=== PATIENT | female | born 1935 | race Caucasian/White ===

== ENCOUNTER 2017-11-22 20:43 | Inpatient (IN) | payer OTHER ==
[~2017-11-22] VITALS: Ht 160 cm; Wt 133.1 kg
[~2017-11-22 20:43] MED LIST: ASPI81CH PO; ASPI81EC PO; BENTYL20 MG PO; BIOTIN1 MG PO; BUME2 PO; CIPR500 PO; Cipro500 MG PO; DOCU100 PO; FLUT.05NI; Flagyl500 MG PO; Flonase 0.05% N16 GM; GABA300 PO; GAVILAX17 GM PO; GLUC500 PO; HYDACE5 PO; HYDACE5325 PO; Hydrocodone-Ap1 EA26 PO; LIDO5TP TOP; LOPE2C PO; LOSA25; LOSA50; MECL25; MECL25 PO; MULVITMINF PO; Mirapex PO; OLME20 PO; OMEP40CA12 PO; ONDA4 PO; OXYACE5T PO; POLYETHYLENE G255 GM PO; PREG50 PO; PROC10 PO; PROM25 PO; ROPI.25 PO; ROXICODONE5 MG PO; Roxicodone5 MG PO; SIMV20; SIMV40 PO; SIMV5 PO; SULTRIDS PO; VALS80 PO; Zofran4 MG PO
[2017-11-22 21:07] LABS: BASOPHILS ABSOLUTE AUTO 0.02 K/mm3 (0.00-0.23); BASOPHILS PERCENT AUTO 0 % (0-2); EOSINOPHILS ABSOLUTE AUTO 0.02 K/mm3 (0.00-0.68); EOSINOPHILS PERCENT AUTO 0 % (0-6); Hematocrit 29.7 % (33.0-51.0); Hemoglobin 9.4 g/dL (11.5-16.0); IMMATURE GRAN ABSOLUTE AUTO 0.08 K/mm3 (0.00-0.10); IMMATURE GRAN PERCENT AUTO 1 % (0-1); LYMPHOCYTES ABSOLUTE AUTO 0.64 K/mm3 (0.84-5.20); LYMPHOCYTES PERCENT AUTO 8 % (21-46); MONOCYTES ABSOLUTE AUTO 1.65 K/mm3 (0.16-1.47); MONOCYTES PERCENT AUTO 21 % (4-13); Mean Corpuscular HGB 32.9 pg (26.0-34.0); Mean Corpuscular HGB Conc 31.6 g/dL (31.5-36.5); Mean Corpuscular Volume 104 fL (80-100); Mean Platelet Volume 9.8 fL (9.1-12.4); NEUTROPHILS ABSOLUTE AUTO 5.65 K/mm3 (1.96-9.15); NEUTROPHILS PERCENT AUTO 70 % (41-73); NRBC ABSOLUTE 0.03 K/mm3 (0.00-0.02); NRBC Auto 0.4 /100 WBC (0.0-0.2); Platelet Count 161 K/mm3 (150-400); RDW Coefficient Variation 15.3 % (11.7-14.2); RDW Standard Deviation 56.7 fL (35.1-46.3); Red Blood Cell Count 2.86 M/mm3 (3.80-5.20); White Blood Cell Count 8.06 K/mm3 (4.00-11.30)
[2017-11-22 21:25] LABS: Alanine Aminotransfer (ALT/SGP 21 U/L (12-78); Albumin, Blood 3.5 g/dL (3.4-5.0); Albumin/Globulin Ratio 0.8 (0.8-1.8); Alk Phos 66 U/L (50-136); Anion Gap 9 mmol/L (6-16); Aspartate Aminotrans (AST/SGOT 15 U/L (12-37); Bilirubin, Total 0.6 mg/dL (0.1-1.0); Blood Urea Nitrogen 35 mg/dL (8-24); CO2, Blood 23 mmol/L (21-32); Calcium, Blood 8.5 mg/dL (8.5-10.1); Chloride, Blood 110 mmol/L (98-108); Creatinine, Blood 1.84 mg/dL (0.40-1.00); Globulin, Blood 4.5 g/dL (2.2-4.0); Glomerular Filtration Rate 28 (60-); Glucose, Blood 137 mg/dL (70-99); Potassium, Blood 5.3 mmol/L (3.5-5.5); Sodium, Blood 142 mmol/L (136-145)
[2017-11-22 22:21] LABS: Source, Urine Clean Catch
[2017-11-22 22:25] LABS: Appearance, Urine Hazy (Clear); Bilirubin, Urine Neg (Neg); Blood, Urine 5+ (Neg); Color, Urine Yellow (P-Yellow); Glucose Qualitative, Urine Neg (Neg); Ketones, Urine Neg (Neg); Leukocyte Esterase, Urine 3+ (Neg); Nitrite, Urine Neg (Neg); Protein, Urine 3+ (Neg); Urobilinogen, Urine NORM (Normal)
[2017-11-22 22:30] LABS: Squamous Epithelial Cells Rare /hpf (Few); White Blood Cells, Urine 50-100 /hpf (0-5)
[2017-11-22 22:31] LABS: Amorphous Light (0-Heavy); Bacteria Mod /hpf
[2017-11-22] MEDS ORDERED: PREG200 PO (23:41)
[2017-11-22 23:54] LABS: Troponin I <0.015 ng/mL (0.000-0.040)
[2017-11-23 00:05] LABS: Base Excess Venous -2.6 mmol/L; Bicarbonate Venous 22.5 mmol/L (24.0-30.0); PCO2 Venous 38.1 mmHg (38-42); PO2 Venous 185 mmHg (38-42); pH Blood Venous 7.38 (7.34-7.37)
[2017-11-23 04:51] LABS: Hematocrit 29.2 % (33.0-51.0); Hemoglobin 9.1 g/dL (11.5-16.0); Mean Corpuscular HGB 32.9 pg (26.0-34.0); Mean Corpuscular HGB Conc 31.2 g/dL (31.5-36.5); Mean Corpuscular Volume 105 fL (80-100); Mean Platelet Volume 9.6 fL (9.1-12.4); NRBC ABSOLUTE 0.02 K/mm3 (0.00-0.02); NRBC Auto 0.3 /100 WBC (0.0-0.2); Platelet Count 140 K/mm3 (150-400); RDW Coefficient Variation 15.1 % (11.7-14.2); RDW Standard Deviation 57.9 fL (35.1-46.3); Red Blood Cell Count 2.77 M/mm3 (3.80-5.20)
[2017-11-23 05:15] LABS: Albumin, Blood 3.2 g/dL (3.4-5.0); Albumin/Globulin Ratio 0.8 (0.8-1.8); Bilirubin, Total 0.5 mg/dL (0.1-1.0); Bun/Creatinine Ratio 18.2 (12.0-20.0); Calcium, Blood 8.2 mg/dL (8.5-10.1); Creatinine, Blood 1.92 mg/dL (0.40-1.00); Globulin, Blood 4.2 g/dL (2.2-4.0); Potassium, Blood 5.2 mmol/L (3.5-5.5); Total Protein, Blood 7.4 g/dL (6.4-8.2)
[2017-11-23] MEDS ORDERED: BUME1 PO (14:27)
[2017-11-23] MEDS ORDERED: ELIQUIS2.5 MG PO (14:28)
[2017-11-23] MEDS ORDERED: MYRBETRIQ25 MG PO (14:29)
[2017-11-23] MEDS ORDERED: Prilosec Otc20 MG PO (14:29)
[2017-11-23] MEDS ORDERED: ALBU90OI INH (14:30)
[2017-11-23] MEDS ORDERED: B Complex #11 EACH PO (14:30)
[2017-11-23] MEDS ORDERED: CHOL10002 PO (14:31)
[2017-11-23] MEDS ORDERED: VITAMIN E400 UNI1 PO (14:31)
== END 2017-11-23 16:59 | disposition home or self-care (01) | DRG 690 ==
LOC: ER 20:43 → MEDS 20:44 → ENPENDDIS 11-23 16:58 → MEDS 11-23 16:59
PROVIDERS: Emergency Medicine; Internal Medicine
DX: N39.0 Urinary tract infection, site not specified (principal); J96.11 Chronic respiratory failure with hypoxia; Z68.43 Body mass index [BMI] 50.0-59.9, adult; E78.00 Pure hypercholesterolemia, unspecified; L40.9 Psoriasis, unspecified; F44.4 Conversion disorder with motor symptom or deficit; J44.9 Chronic obstructive pulmonary disease, unspecified; Z99.81 Dependence on supplemental oxygen; Z74.09 Other reduced mobility; I12.9 Hypertensive chronic kidney disease with stage 1 through stage 4 chronic kidney disease, or unspecified chronic kidney disease; K21.9 Gastro-esophageal reflux disease without esophagitis; L40.50 Arthropathic psoriasis, unspecified; G47.30 Sleep apnea, unspecified; N18.3 Chronic kidney disease, stage 3 (moderate); Z66 Do not resuscitate; E86.0 Dehydration; D63.1 Anemia in chronic kidney disease; Z87.442 Personal history of urinary calculi; E66.01 Morbid (severe) obesity due to excess calories
CPT/HCPCS: 36415; 51702; 71045; 80053; 81001; 82803; 83690; 83880; 84484; 85025; 85027; 87077; 87086; 87186; 93005; 93010; 96374; 96375; 97161; 97165; 97530; 99285; G8978; G8979; G8980; G8987; G8988; J0696; J1650; J2405; J3010; J7030

== ENCOUNTER 2018-01-16 12:55 | Inpatient (IN) | payer OTHER ==
[~2018-01-16] VITALS: Ht 152.4 cm; Wt 130.4 kg
[~2018-01-16 12:55] MED LIST changes: +ALBU90OI INH; +B Complex #11 EACH PO; +BUME1 PO; +CHOL10002 PO; +ELIQUIS2.5 MG PO; +MYRBETRIQ25 MG PO; +PREG200 PO; +Prilosec Otc20 MG PO; +VITAMIN E400 UNI1 PO
[2018-01-16 13:38] LABS: Source, Urine Clean Catch
[2018-01-16 13:46] LABS: BASOPHILS ABSOLUTE AUTO 0.02 K/mm3 (0.00-0.23); BASOPHILS PERCENT AUTO 0 % (0-2); EOSINOPHILS ABSOLUTE AUTO 0.01 K/mm3 (0.00-0.68); EOSINOPHILS PERCENT AUTO 0 % (0-6); Hematocrit 31.6 % (33.0-51.0); Hemoglobin 9.8 g/dL (11.5-16.0); IMMATURE GRAN ABSOLUTE AUTO 0.23 K/mm3 (0.00-0.10); IMMATURE GRAN PERCENT AUTO 2 % (0-1); LYMPHOCYTES ABSOLUTE AUTO 0.76 K/mm3 (0.84-5.20); LYMPHOCYTES PERCENT AUTO 6 % (21-46); MONOCYTES ABSOLUTE AUTO 1.99 K/mm3 (0.16-1.47); MONOCYTES PERCENT AUTO 16 % (4-13); Mean Corpuscular HGB 31.7 pg (26.0-34.0); Mean Corpuscular Volume 102 fL (80-100); Mean Platelet Volume 9.9 fL (9.1-12.4); NEUTROPHILS PERCENT AUTO 77 % (41-73); Platelet Count 175 K/mm3 (150-400); RDW Standard Deviation 52.2 fL (35.1-46.3); Red Blood Cell Count 3.09 M/mm3 (3.80-5.20); White Blood Cell Count 12.81 K/mm3 (4.00-11.30)
[2018-01-16 13:52] LABS: Appearance, Urine Cloudy (Clear); Bilirubin, Urine Neg (Neg); Blood, Urine 5+ (Neg); Color, Urine Yellow (P-Yellow); Glucose Qualitative, Urine Neg (Neg); Ketones, Urine Neg (Neg); Leukocyte Esterase, Urine 3+ (Neg); Nitrite, Urine Neg (Neg); Protein, Urine 3+ (Neg); Specific Gravity, Urine 1.015 (1.003-1.022); Urobilinogen, Urine NORM (Normal)
[2018-01-16 14:01] LABS: Albumin, Blood 3.5 g/dL (3.4-5.0); Albumin/Globulin Ratio 0.7 (0.8-1.8); Bilirubin, Total 0.4 mg/dL (0.1-1.0); Bun/Creatinine Ratio 19.9 (12.0-20.0); Creatinine, Blood 2.21 mg/dL (0.40-1.00); Globulin, Blood 5.1 g/dL (2.2-4.0); Potassium, Blood 5.8 mmol/L (3.5-5.5); Total Protein, Blood 8.6 g/dL (6.4-8.2)
[2018-01-16 14:18] LABS: Bacteria Few /hpf; Squamous Epithelial Cells Rare /hpf (Few); White Blood Cells, Urine TNTC /hpf (0-5)
[2018-01-17 04:46] LABS: BASOPHILS ABSOLUTE AUTO 0.02 K/mm3 (0.00-0.23); BASOPHILS PERCENT AUTO 0 % (0-2); EOSINOPHILS ABSOLUTE AUTO 0.03 K/mm3 (0.00-0.68); EOSINOPHILS PERCENT AUTO 0 % (0-6); Hematocrit 29.9 % (33.0-51.0); Hemoglobin 9.4 g/dL (11.5-16.0); IMMATURE GRAN ABSOLUTE AUTO 0.11 K/mm3 (0.00-0.10); IMMATURE GRAN PERCENT AUTO 1 % (0-1); LYMPHOCYTES ABSOLUTE AUTO 0.72 K/mm3 (0.84-5.20); LYMPHOCYTES PERCENT AUTO 7 % (21-46); MONOCYTES ABSOLUTE AUTO 1.53 K/mm3 (0.16-1.47); MONOCYTES PERCENT AUTO 14 % (4-13); Mean Corpuscular HGB 32.5 pg (26.0-34.0); Mean Corpuscular HGB Conc 31.4 g/dL (31.5-36.5); Mean Corpuscular Volume 104 fL (80-100); Mean Platelet Volume 9.8 fL (9.1-12.4); NEUTROPHILS ABSOLUTE AUTO 8.68 K/mm3 (1.96-9.15); NEUTROPHILS PERCENT AUTO 78 % (41-73); Platelet Count 143 K/mm3 (150-400); RDW Coefficient Variation 13.8 % (11.7-14.2); RDW Standard Deviation 52.7 fL (35.1-46.3); Red Blood Cell Count 2.89 M/mm3 (3.80-5.20); White Blood Cell Count 11.09 K/mm3 (4.00-11.30)
[2018-01-17 05:06] LABS: Bun/Creatinine Ratio 19.6 (12.0-20.0); Calcium, Blood 8.4 mg/dL (8.5-10.1); Creatinine, Blood 1.99 mg/dL (0.40-1.00); Potassium, Blood 5.4 mmol/L (3.5-5.5)
[2018-01-18 05:16] LABS: BASOPHILS ABSOLUTE AUTO 0.01 K/mm3 (0.00-0.23); BASOPHILS PERCENT AUTO 0 % (0-2); EOSINOPHILS ABSOLUTE AUTO 0.13 K/mm3 (0.00-0.68); EOSINOPHILS PERCENT AUTO 2 % (0-6); Hematocrit 28.8 % (33.0-51.0); Hemoglobin 9.1 g/dL (11.5-16.0); IMMATURE GRAN ABSOLUTE AUTO 0.12 K/mm3 (0.00-0.10); IMMATURE GRAN PERCENT AUTO 2 % (0-1); LYMPHOCYTES ABSOLUTE AUTO 0.74 K/mm3 (0.84-5.20); LYMPHOCYTES PERCENT AUTO 10 % (21-46); MONOCYTES PERCENT AUTO 15 % (4-13); Mean Corpuscular HGB 32.5 pg (26.0-34.0); Mean Corpuscular HGB Conc 31.6 g/dL (31.5-36.5); Mean Corpuscular Volume 103 fL (80-100); Mean Platelet Volume 10.1 fL (9.1-12.4); NEUTROPHILS ABSOLUTE AUTO 5.61 K/mm3 (1.96-9.15); NEUTROPHILS PERCENT AUTO 72 % (41-73); Platelet Count 132 K/mm3 (150-400); RDW Coefficient Variation 13.7 % (11.7-14.2); White Blood Cell Count 7.81 K/mm3 (4.00-11.30)
[2018-01-18 05:32] LABS: Bun/Creatinine Ratio 18.6 (12.0-20.0); Calcium, Blood 7.9 mg/dL (8.5-10.1); Creatinine, Blood 1.88 mg/dL (0.40-1.00); Potassium, Blood 5.2 mmol/L (3.5-5.5)
[2018-01-19 05:55] LABS: Bun/Creatinine Ratio 20.7 (12.0-20.0); Calcium, Blood 8.1 mg/dL (8.5-10.1); Creatinine, Blood 1.64 mg/dL (0.40-1.00)
[2018-01-19] MEDS ORDERED: PREG150 PO (16:26)
[2018-01-19] MEDS ORDERED: AMLO5 PO (16:26)
[2018-01-19] MEDS ORDERED: DOXY100 PO (16:27)
[2018-01-19] MEDS ORDERED: Acidophilus La100 GM PO (16:27)
[2018-01-19] MEDS ORDERED: GAVILAX17 GM PO (16:28)
[2018-01-19] MEDS ORDERED: Humalog100 UNIT/3 SC (16:28)
== END 2018-01-19 17:06 | disposition home or self-care (01) | DRG 682 ==
LOC: ER 12:55 → MEDS 15:58
PROVIDERS: Emergency Medicine; Internal Medicine
DX: N17.9 Acute kidney failure, unspecified (principal); G92 Toxic encephalopathy; N39.0 Urinary tract infection, site not specified; Z68.43 Body mass index [BMI] 50.0-59.9, adult; E66.2 Morbid (severe) obesity with alveolar hypoventilation; Z87.442 Personal history of urinary calculi; E78.00 Pure hypercholesterolemia, unspecified; L40.9 Psoriasis, unspecified; Z87.891 Personal history of nicotine dependence; N18.3 Chronic kidney disease, stage 3 (moderate); R26.89 Other abnormalities of gait and mobility; K21.9 Gastro-esophageal reflux disease without esophagitis; L40.50 Arthropathic psoriasis, unspecified; I12.9 Hypertensive chronic kidney disease with stage 1 through stage 4 chronic kidney disease, or unspecified chronic kidney disease; M48.00 Spinal stenosis, site unspecified; Z99.81 Dependence on supplemental oxygen; Z87.440 Personal history of urinary (tract) infections; Z51.5 Encounter for palliative care; Z79.4 Long term (current) use of insulin
CPT/HCPCS: 36415; 51702; 71045; 80048; 80053; 81001; 82947; 85025; 87077; 87086; 87186; 93005; 93010; 94660; 94762; 96361; 96374; 97110; 97116; 97162; 97530; 99285-25; G8978; G8979; J0360; J0696; J2405; J7030; J7120

== ENCOUNTER → 2018-07-18 | Outpatient (CLI) | payer OTHER ==
[~2018-07-18] MED LIST changes: +AMLO5 PO; +Acidophilus La100 GM PO; +DOXY100 PO; +Humalog100 UNIT/3 SC; +PREG150 PO
[2018-07-18 17:22] LABS: Bilirubin, Urine Neg (Neg); Blood, Urine 4+ (Neg); Glucose Qualitative, Urine Neg (Neg); Ketones, Urine Neg (Neg); Leukocyte Esterase, Urine 3+ (Neg); Nitrite, Urine Neg (Neg); Protein, Urine 2+ (Neg); Specific Gravity, Urine 1.015 (1.003-1.022); Urobilinogen, Urine NORM (Normal)
[2018-07-18 17:30] LABS: Appearance, Urine Hazy (Clear); Color, Urine Yellow (P-Yellow)
[2018-07-18 17:31] LABS: Squamous Epithelial Cells Few /hpf (Few); White Blood Cells, Urine TNTC /hpf (0-5)
[2018-07-18 17:32] LABS: Bacteria Mod /hpf
== END | disposition home or self-care (01) ==
LOC: LAB UCHC 15:18 → LAB SHORT 15:18
DX: N39.0 Urinary tract infection, site not specified (principal)
CPT/HCPCS: 81001; 87077; 87086; 87186

== ENCOUNTER → 2018-09-28 | Outpatient (CLI) | payer OTHER ==
[2018-09-28 17:21] LABS: Percent Saturation 25.9 % (15.0-50.0)
[2018-09-28 17:37] LABS: Albumin, Blood 3.5 g/dL (3.4-5.0); Anion Gap 5 mmol/L (6-16); Blood Urea Nitrogen 50 mg/dL (8-24); Bun/Creatinine Ratio 29.2 (12.0-20.0); CO2, Blood 22 mmol/L (21-32); Calcium, Blood 8.9 mg/dL (8.5-10.1); Chloride, Blood 115 mmol/L (98-108); Creatinine, Blood 1.71 mg/dL (0.40-1.00); Glomerular Filtration Rate 30 (60-); Glucose, Blood 91 mg/dL (70-99); Phosphorus, Blood 4.6 mg/dL (2.5-4.9); Potassium, Blood 6.1 mmol/L (3.5-5.5); Sodium, Blood 142 mmol/L (136-145)
== END | disposition home or self-care (01) ==
LOC: LAB SHORT 16:51 → LAB 16:51
PROVIDERS: Internal Medicine Hematology & Oncology; Internal Medicine Nephrology
DX: D53.9 Nutritional anemia, unspecified (principal); M62.81 Muscle weakness (generalized); R42 Dizziness and giddiness
CPT/HCPCS: 80069; 82728; 83540; 83550; 84132; 85018

== ENCOUNTER → 2019-01-16 | Outpatient (CLI) | payer OTHER | END | disposition home or self-care (01) | LOC: LAB SHORT 19:24 → LAB 19:24 | DX: N39.0 Urinary tract infection, site not specified (principal) | CPT/HCPCS: 87086 ==

== ENCOUNTER 2019-06-26 20:32 | Inpatient (IN) | payer OTHER ==
[~2019-06-26] VITALS: Ht 160 cm; Wt 124.1 kg
[~2019-06-26 20:32] MED LIST changes: -Hydrocodone-Ap1 EA26 PO; +Norco 7.5-3251 EACH PO; +ZOCOR20 MG PO
[2019-06-26 21:12] LABS: Source, Urine Voided
[2019-06-26 21:16] LABS: Bilirubin, Urine Neg (Neg); Blood, Urine 5+ (Neg); Glucose Qualitative, Urine Neg (Neg); Ketones, Urine Neg (Neg); Leukocyte Esterase, Urine 3+ (Neg); Nitrite, Urine Neg (Neg); Protein, Urine 4+ (Neg); Urobilinogen, Urine NORM (Normal); pH, Urine 6.5 (5.0-8.0)
[2019-06-26 21:27] LABS: Appearance, Urine Cloudy (Clear); Color, Urine Yellow (P-Yellow)
[2019-06-26 21:28] LABS: White Blood Cells, Urine TNTC /hpf (0-5)
[2019-06-26 21:29] LABS: Bacteria Mod /hpf; Red Blood Cells, Urine 25-50 /hpf (0-2); Squamous Epithelial Cells Mod /hpf (Few)
[2019-06-26 21:32] LABS: U Amphetamine Screen Not Detected; U Barbituate Screen Not Detected; U Benzodiazapine Screen Not Detected; U Buprenorphine Screen Not Detected; U Cannabinoids Screen Not Detected; U Cocaine Screen Not Detected; U Methadone Screen Not Detected; U Methamphetamine Screen Not Detected; U Opiates Screen DETECTED; U Oxycodone Screen Not Detected; U Phencyclidine Screen Not Detected; U Propoxyphene Screen Not Detected
[2019-06-26] MEDS ORDERED: ONDA4ODT (21:53)
[2019-06-26 22:24] LABS: BASOPHILS ABSOLUTE AUTO 0.01 K/mm3 (0.00-0.23); BASOPHILS PERCENT AUTO 0 % (0-2); EOSINOPHILS ABSOLUTE AUTO 0.04 K/mm3 (0.00-0.68); EOSINOPHILS PERCENT AUTO 0 % (0-6); Hemoglobin 11.9 g/dL (11.5-16.0); IMMATURE GRAN ABSOLUTE AUTO 0.77 K/mm3 (0.00-0.10); IMMATURE GRAN PERCENT AUTO 8 % (0-1); LYMPHOCYTES ABSOLUTE AUTO 0.65 K/mm3 (0.84-5.20); LYMPHOCYTES PERCENT AUTO 6 % (21-46); MONOCYTES ABSOLUTE AUTO 3.02 K/mm3 (0.16-1.47); MONOCYTES PERCENT AUTO 30 % (4-13); Mean Corpuscular HGB 30.5 pg (26.0-34.0); Mean Corpuscular HGB Conc 30.5 g/dL (31.5-36.5); Mean Corpuscular Volume 100 fL (80-100); NEUTROPHILS ABSOLUTE AUTO 5.68 K/mm3 (1.96-9.15); NEUTROPHILS PERCENT AUTO 56 % (41-73); Platelet Count 138 K/mm3 (150-400); RDW Standard Deviation 47.8 fL (35.1-46.3); White Blood Cell Count 10.17 K/mm3 (4.00-11.30)
[2019-06-26 22:43] LABS: BAND PERCENT MAN 2 % (0-8); BASOPHILS PERCENT MAN 0 % (0-2); EOSINOPHILS PERCENT MAN 0 % (0-6); LYMPHOCYTES PERCENT MAN 4 % (21-46); MONOCYTES ABSOLUTE MAN 2.84 K/mm3 (0.16-1.47); MONOCYTES PERCENT MAN 28 % (4-13); NEUTROPHILS ABSOLUTE MAN 6.91 K/mm3 (1.96-9.15); SEG NEUTROPHILS PERCENT MAN 66 % (41-73); TOTAL CELLS COUNTED 100
[2019-06-26 22:59] LABS: Albumin, Blood 3.4 g/dL (3.4-5.0); Albumin/Globulin Ratio 0.7 (0.8-1.8); Bilirubin, Total 0.7 mg/dL (0.1-1.0); Bun/Creatinine Ratio 19.3 (12.0-20.0); Calcium, Blood 8.9 mg/dL (8.5-10.1); Creatinine, Blood 1.87 mg/dL (0.40-1.00); Globulin, Blood 4.8 g/dL (2.2-4.0); Total Protein, Blood 8.2 g/dL (6.4-8.2)
[2019-06-27 01:09] LABS: Source, Urine Catheter
[2019-06-27 01:11] LABS: Appearance, Urine Cloudy (Clear); Bilirubin, Urine Neg (Neg); Blood, Urine 4+ (Neg); Color, Urine Yellow (P-Yellow); Glucose Qualitative, Urine Neg (Neg); Ketones, Urine Neg (Neg); Leukocyte Esterase, Urine 3+ (Neg); Nitrite, Urine Neg (Neg); Protein, Urine 4+ (Neg); Urobilinogen, Urine NORM (Normal)
[2019-06-27 01:18] LABS: Bacteria Many /hpf; Red Blood Cells, Urine 0-2 /hpf (0-2); Squamous Epithelial Cells Few /hpf (Few); White Blood Cells, Urine TNTC /hpf (0-5)
--- NOTE | 2019-06-27 05:24 | NUR ---
SHIFT SUMMARY PT NEW ED ADMIT THIS EVENING. PER REPORT PT WAS HALLUCINATING DOWN IN THE EMERGENCY DEPARTMENT. MAKING ODD STATEMENTS. SON REPORTED THIS BEHAVIOR IS NORMAL FOR PT WHEN SHE HAS A UTI. NO HALLUCINATIONS NOTED SINCE PT ARRIVED TO MEDICAL FLOOR. PT IS SLOW TO RESPOND AND FORGETFUL AT TIMES. POTASSIUM CRITICALLY HIGH 6.0 DOWN IN ED AT 2200. PT ARRIVED TO FLOOR AT 0145 WITH NEW ORDERS TO BRING DOWN POTASSIUM. KAYEXALATE, HUMULIN R, AND DEXTROSE GIVEN. PT VERY PAINFUL ESPECIALLY W/ MOVEMENT. PT HAS CHRONIC BACK PAIN. MEDICATED X 1 W/ NORCO 7.5/325. REPOSITIONED PT NEEDED. PT YELLS OUT AND BECOMES VERY UPSET WITH REPOSITIONING. PT COCCYX BEGINNING TO BREAK DOWN. EDUCATED PT ON IMPORTANCE OF MOVING IN BED, HOWEVER PT DOES NOT TOLERATE PILLOWS BENEATH HER VERY WELL. PLACED PT TOLERATED. SALDIVAR CATH IN PLACE. DRAINING CLOUDY YELLOW URINE. BLOOD PRESSURE SLIGHTLY HYPERTENSIVE BUT IMPROVED FROM DOWN IN ED. OTHERWISE VITAL SIGNS STABLE. PT RESTING IN BED AT THIS TIME.
[2019-06-27 05:40] LABS: Albumin, Blood 3.2 g/dL (3.4-5.0); Albumin/Globulin Ratio 0.7 (0.8-1.8); Bilirubin, Total 0.6 mg/dL (0.1-1.0); Bun/Creatinine Ratio 19.1 (12.0-20.0); Calcium, Blood 8.6 mg/dL (8.5-10.1); Creatinine, Blood 1.88 mg/dL (0.40-1.00); Globulin, Blood 4.7 g/dL (2.2-4.0); Potassium, Blood 5.3 mmol/L (3.5-5.5); Total Protein, Blood 7.9 g/dL (6.4-8.2)
[2019-06-27] MEDS ORDERED: LOSA25 PO (14:30)
--- NOTE | 2019-06-27 16:54 | NUR ---
SHIFT SUMMARY PATIENT HAS HAD AN UNEVENTFUL SHIFT. VITALS HAVE BEEN STABLE. PATIENT A/O WITH SOME FORGETFULNESS. CALLS FOR STAFF APPROPRIATELY NEEDED. SALDIVAR DRAINING TO GRAVITY. NO ACUTE CHANGES TO REPORT OF AT THIS TIME. WILL CONTINUE TO MONITOR AND PROVIDE CARE NEEDED.
--- NOTE | 2019-06-27 21:28 | NUR ---
1914 REPORT RECEIVED FROM SUNNY ROBISON. 2030 PT RESTING COMFORTABLY IN BED; DENIES PAIN OR NAUSEA.
--- NOTE | 2019-06-28 04:34 | NUR ---
SHIFT SUMMARY: 83 Y/O OBESE FEMALE RESTED COMFORTABLY IN BED ALL SHIFT; DENIES PAIN OR NAUSEA; ALERT AND ORIENTED X 4; PT HAS REDNESS NOTED TO PANUS AND GROIN WITH NYSTATIN POWDER APPLIED ORDERED; BED ALARM APPLIED, BED LOW POSITION WITH CALL LIGHT AT SIDE.
[2019-06-28 05:21] LABS: BASOPHILS ABSOLUTE AUTO 0.01 K/mm3 (0.00-0.23); BASOPHILS PERCENT AUTO 0 % (0-2); EOSINOPHILS PERCENT AUTO 2 % (0-6); Hematocrit 33.2 % (33.0-51.0); Hemoglobin 9.9 g/dL (11.5-16.0); IMMATURE GRAN PERCENT AUTO 2 % (0-1); LYMPHOCYTES ABSOLUTE AUTO 0.97 K/mm3 (0.84-5.20); LYMPHOCYTES PERCENT AUTO 15 % (21-46); MONOCYTES ABSOLUTE AUTO 2.04 K/mm3 (0.16-1.47); MONOCYTES PERCENT AUTO 31 % (4-13); Mean Corpuscular HGB 30.7 pg (26.0-34.0); Mean Corpuscular HGB Conc 29.8 g/dL (31.5-36.5); Mean Platelet Volume 11.1 fL (9.1-12.4); NEUTROPHILS ABSOLUTE AUTO 3.35 K/mm3 (1.96-9.15); NEUTROPHILS PERCENT AUTO 51 % (41-73); Platelet Count 117 K/mm3 (150-400); RDW Standard Deviation 49.6 fL (35.1-46.3); Red Blood Cell Count 3.23 M/mm3 (3.80-5.20); White Blood Cell Count 6.57 K/mm3 (4.00-11.30)
[2019-06-28 05:28] LABS: Mean Corpuscular Volume 103 fL (80-100)
[2019-06-28 05:43] LABS: Albumin, Blood 2.7 g/dL (3.4-5.0); Albumin/Globulin Ratio 0.6 (0.8-1.8); Bilirubin, Total 0.5 mg/dL (0.1-1.0); Calcium, Blood 8.1 mg/dL (8.5-10.1); Creatinine, Blood 1.67 mg/dL (0.40-1.00); Globulin, Blood 4.4 g/dL (2.2-4.0); Phosphorus, Blood 3.4 mg/dL (2.5-4.9); Potassium, Blood 5.5 mmol/L (3.5-5.5); Total Protein, Blood 7.1 g/dL (6.4-8.2)
[2019-06-28] MEDS ORDERED: CEFD300 PO (12:56)
--- NOTE | 2019-06-28 13:27 | NUR ---
PATIENT GIVEN VERBAL AND PRINTED DISCHARGE INSTRUCTIONS. MEDICATION FAXED TO [facility] PER PATIENT REQUEST. SALDIVAR, IV AND TELE DISCONTINUED. ALL QUESTIONS ANSWERED. PATIENTS SON TO COME AND PICK PATIENT UP AND TRANSPORT HOME.
--- NOTE | 2019-06-28 15:00 | NUR ---
PATIENT DISCHARGED HOME WITH SON AT 1500. ASSISTED OUT TO VEHICLE IN W/C BY DILCIA.
== END 2019-06-28 14:59 | disposition home or self-care (01) | DRG 689 ==
LOC: ER 20:32 → MEDS 06-27 01:34 → ENPENDDIS 06-28 11:30 → MEDS 06-28 14:59
PROVIDERS: Emergency Medicine; Internal Medicine; Nurse Practitioner Acute Care; Physician Assistant; ADMIT Internal Medicine
DX: N39.0 Urinary tract infection, site not specified (principal); G93.41 Metabolic encephalopathy; N18.4 Chronic kidney disease, stage 4 (severe); Z68.43 Body mass index [BMI] 50.0-59.9, adult; E87.5 Hyperkalemia; I12.9 Hypertensive chronic kidney disease with stage 1 through stage 4 chronic kidney disease, or unspecified chronic kidney disease; K21.9 Gastro-esophageal reflux disease without esophagitis; D63.1 Anemia in chronic kidney disease; E78.5 Hyperlipidemia, unspecified; G47.33 Obstructive sleep apnea (adult) (pediatric); I48.91 Unspecified atrial fibrillation; M19.90 Unspecified osteoarthritis, unspecified site; E66.01 Morbid (severe) obesity due to excess calories; Z87.440 Personal history of urinary (tract) infections; Z87.891 Personal history of nicotine dependence; Z88.5 Allergy status to narcotic agent; Z88.2 Allergy status to sulfonamides; Z88.8 Allergy status to other drugs, medicaments and biological substances
CPT/HCPCS: 36415; 51702; 71045; 80053; 81001; 82947; 83605; 84100; 85025; 87086; 93005; 93010; 94640; 94760; 96365-59; 96375; 96375-59; 97110; 97162; 97530; 99285-25; A9270; J0696; J1815; J2405

== ENCOUNTER 2020-02-11 11:02 | Inpatient (IN) | payer OTHER ==
[~2020-02-11] VITALS: Ht 162.6 cm; Wt 133.0 kg
[~2020-02-11 11:02] MED LIST changes: +CEFD300 PO; +FLUTICASONE-SA1 EAC1 INH; +LANOXIN125 MCG PO; +LIDOCAINE PAIN1 EACH TOP; +LOSA25 PO; +MERIBIN5 MG PO; +METO25 PO; +MIRALAX17 GM PO; +OMEP20ER PO; +ONDA4ODT; +PREG100 PO; +PROBIOTIC PO; -ZOCOR20 MG PO; +ZOCOR40 MG PO
[2020-02-11 11:34] LABS: Hematocrit 37.3 % (33.0-51.0); Hemoglobin 11.3 g/dL (11.5-16.0); Mean Corpuscular HGB 30.4 pg (26.0-34.0); Mean Corpuscular HGB Conc 30.3 g/dL (31.5-36.5); Mean Corpuscular Volume 100 fL (80-100); Mean Platelet Volume 10.6 fL (9.1-12.4); NRBC ABSOLUTE 0.04 K/mm3 (0.00-0.02); NRBC Auto 0.4 /100 WBC (0.0-0.2); Platelet Count 152 K/mm3 (150-400); RDW Coefficient Variation 13.6 % (11.7-14.2); RDW Standard Deviation 49.8 fL (35.1-46.3); Red Blood Cell Count 3.72 M/mm3 (3.80-5.20); White Blood Cell Count 9.11 K/mm3 (4.00-11.30)
[2020-02-11 12:02] LABS: Albumin, Blood 3.3 g/dL (3.4-5.0); Albumin/Globulin Ratio 0.7 (0.8-1.8); Bilirubin, Total 0.3 mg/dL (0.1-1.0); Calcium, Blood 7.7 mg/dL (8.5-10.1); Creatinine, Blood 3.47 mg/dL (0.40-1.00); Globulin, Blood 4.5 g/dL (2.2-4.0); Potassium, Blood 6.3 mmol/L (3.5-5.5); Total Protein, Blood 7.8 g/dL (6.4-8.2)
[2020-02-11 12:17] LABS: BAND PERCENT MAN 1 % (0-8); BASOPHILS PERCENT MAN 0 % (0-2); EOSINOPHILS ABSOLUTE MAN 0.09 K/mm3 (0.00-0.68); EOSINOPHILS PERCENT MAN 1 % (0-6); LYMPHOCYTES ABSOLUTE MAN 1.36 K/mm3 (0.84-5.20); LYMPHOCYTES PERCENT MAN 15 % (21-46); MONOCYTES ABSOLUTE MAN 2.27 K/mm3 (0.16-1.47); MONOCYTES PERCENT MAN 25 % (4-13); NEUTROPHILS ABSOLUTE MAN 5.37 K/mm3 (1.96-9.15); SEG NEUTROPHILS PERCENT MAN 58 % (41-73); TOTAL CELLS COUNTED 100
[2020-02-11 13:24] LABS: Source, Urine Catheter
[2020-02-11] MEDS ORDERED: FLUTICASONE PRO16 GM (13:25)
[2020-02-11] MEDS ORDERED: Cetirizine HCl10 MG PO (13:25)
[2020-02-11] MEDS ORDERED: NORCO PO (13:26)
[2020-02-11] MEDS ORDERED: OMEP20ER PO (13:27)
[2020-02-11] MEDS ORDERED: PREGABALIN150 MG PO (13:27)
[2020-02-11 13:42] LABS: Appearance, Urine Clear (Clear); Bilirubin, Urine Neg (Neg); Blood, Urine 3+ (Neg); Color, Urine Yellow (P-Yellow); Glucose Qualitative, Urine Neg (Neg); Ketones, Urine Neg (Neg); Leukocyte Esterase, Urine 3+ (Neg); Nitrite, Urine Neg (Neg); Protein, Urine 2+ (Neg); Specific Gravity, Urine 1.015 (1.003-1.022); Urobilinogen, Urine NORM (Normal)
[2020-02-11 13:50] LABS: Digoxin (Lanoxin) 0.16 ug/mL (0.80-2.00)
[2020-02-11 14:05] LABS: Bacteria Few /hpf; Squamous Epithelial Cells Many /hpf (Few); White Blood Cells, Urine 25-50 /hpf (0-5)
[2020-02-11 17:06] LABS: Bun/Creatinine Ratio 20.6 (12.0-20.0); Calcium, Blood 7.9 mg/dL (8.5-10.1); Creatinine, Blood 3.06 mg/dL (0.40-1.00); Potassium, Blood 5.8 mmol/L (3.5-5.5)
[2020-02-11 17:25] LABS: U Opiates Screen DETECTED
[2020-02-11 17:26] LABS: U Amphetamine Screen Not Detected; U Barbituate Screen Not Detected; U Benzodiazapine Screen Not Detected; U Buprenorphine Screen Not Detected; U Cannabinoids Screen Not Detected; U Cocaine Screen Not Detected; U Methadone Screen Not Detected; U Methamphetamine Screen Not Detected; U Oxycodone Screen Not Detected; U Phencyclidine Screen Not Detected; U Propoxyphene Screen Not Detected
--- NOTE | 2020-02-11 19:22 | NUR ---
SUMMARY A&O X3, PT APPEARS TO HAVE OCCASIONAL CONFUSION, BED ALARM PLACED FOR SAFETY, VSS, RESP UNLABORED, ON RA, PO NORCO GIVEN FOR PAIN, PT IS TOLERATING PO INTAKE, JOECK PRESENT UPON ADMISSION. IN TO ASSESS PT, HE UPDATED PT'S SON VIA PHONE IN THE ROOM ON HER CONDITION AND PLAN. IV ANX INFUSING PER EMAR. REPORT GIVEN TO NOC RN. CALL LIGHT IN REACH
[2020-02-12 04:53] LABS: Hemoglobin 10.3 g/dL (11.5-16.0); Mean Corpuscular HGB 30.1 pg (26.0-34.0); Mean Corpuscular HGB Conc 30.3 g/dL (31.5-36.5); Mean Corpuscular Volume 99 fL (80-100); Mean Platelet Volume 10.5 fL (9.1-12.4); Platelet Count 130 K/mm3 (150-400); RDW Coefficient Variation 13.7 % (11.7-14.2); RDW Standard Deviation 49.6 fL (35.1-46.3); Red Blood Cell Count 3.42 M/mm3 (3.80-5.20); White Blood Cell Count 7.21 K/mm3 (4.00-11.30)
[2020-02-12 05:11] LABS: Albumin, Blood 2.9 g/dL (3.4-5.0); Anion Gap 2 mmol/L (6-16); Blood Urea Nitrogen 60 mg/dL (8-24); Bun/Creatinine Ratio 22.2 (12.0-20.0); CO2, Blood 25 mmol/L (21-32); Calcium, Blood 7.5 mg/dL (8.5-10.1); Chloride, Blood 112 mmol/L (98-108); Glomerular Filtration Rate 18 (60-); Glucose, Blood 93 mg/dL (70-99); Phosphorus, Blood 4.2 mg/dL (2.5-4.9); Potassium, Blood 5.7 mmol/L (3.5-5.5); Sodium, Blood 139 mmol/L (136-145)
--- NOTE | 2020-02-12 06:11 | NUR ---
SHIFT SUMMARY PT SLEPT T/O SHIFT. SUREWICK UNABLE TO STAY IN PLACE. PT NOW WEARING BRIEF AND ABLE TO TELL NURSE IF URINATING OR NEEDING TO URINATE. PT ABLE TO STAND FOR BRIEF CHANGE WITH GATE BELT, WALKER AND 2-3 PERSON ASSIST. PT SLEPT WITH 4 L OF OXYGEN, THIS IS PATIENTS BASELINE AT HOME. OXYGEN SATURATION REMAINED ABOVE 92%. VS STABLE. PATIENT REPORTS NO CP OR PRESSURE. CALL LIGHT WITHIN REACH. WILL CONTINUE TO MONITOR UNTIL REPORT GIVEN TO DAYSHIFT RN.
--- NOTE | 2020-02-12 07:26 | NUR ---
ASSUMED PATIENT CARE. PATIENT SLEEPING COMFORTABLY IN BED, NO SIGNS OF ACUTE DISTRESS, WCTM.
--- NOTE | 2020-02-12 18:21 | NUR ---
NO ACUTE EVENTS THIS SHIFT. PATIENT REMAINED PAINFUL THROUGH SHIFT, NORCO GIVEN CLOSE TO PATIENT'S NORMAL HOME SCHEDULED DOSES. PATIENT WORKED WITH PT/OT TODAY. POTASSIUM REMAINED ELEVATED, CONTINUE TO MONITOR. NO TELE EVENTS, PATIENT IN SR THIS SHIFT. GENTLE IV FLUIDS CONTINUED FOR REHYDRATION, KIDNEY LABS SHOW IMPROVEMENT.
--- NOTE | 2020-02-13 03:32 | NUR ---
SHIFT SUMMARY: 84 Y/O MORBID OBESE FEMALE RESTED COMFORTABLY ALL SHIFT; PT C/O GENERALIZED PAIN RATED 7/10 WITH NORCO 7.5MG PO GIVEN X 1 WITH GOOD RELIEF FELT; PT SLIGHTLY DEPRESSED OVER LOSING HER HOME [place] THE [place] WHERE SHE AND HER SON WILL BE LIVING IN NEAR FUTURE THEY HAVE NO PLACE TO GO WITH THIS NURSE PROVIDING LISTENING EAR; PT HAS +3 PITTING EDEMA LOWER EXTREMITIES; VITAL SIGNS STABLE; TELEMETRY REFLECTS NSR PER DEEDEE--CAR RENTAL MANAGER; LUNG SOUNDS ARE COARSE THROUGHOUT WHILE WEARING O2 AT 4L/M PER NASAL CANNULA; BED LOW POSITION WITH CALL LIGHT AT SIDE.
[2020-02-13 05:14] LABS: BASOPHILS ABSOLUTE AUTO 0.02 K/mm3 (0.00-0.23); BASOPHILS PERCENT AUTO 0 % (0-2); EOSINOPHILS ABSOLUTE AUTO 0.07 K/mm3 (0.00-0.68); EOSINOPHILS PERCENT AUTO 1 % (0-6); Hematocrit 31.3 % (33.0-51.0); Hemoglobin 9.4 g/dL (11.5-16.0); IMMATURE GRAN PERCENT AUTO 2 % (0-1); LYMPHOCYTES ABSOLUTE AUTO 1.59 K/mm3 (0.84-5.20); LYMPHOCYTES PERCENT AUTO 27 % (21-46); MONOCYTES ABSOLUTE AUTO 2.25 K/mm3 (0.16-1.47); MONOCYTES PERCENT AUTO 38 % (4-13); Mean Corpuscular HGB 30.1 pg (26.0-34.0); Mean Corpuscular Volume 100 fL (80-100); Mean Platelet Volume 10.6 fL (9.1-12.4); NEUTROPHILS ABSOLUTE AUTO 1.91 K/mm3 (1.96-9.15); NEUTROPHILS PERCENT AUTO 32 % (41-73); NRBC ABSOLUTE 0.02 K/mm3 (0.00-0.02); NRBC Auto 0.3 /100 WBC (0.0-0.2); Platelet Count 114 K/mm3 (150-400); RDW Coefficient Variation 13.7 % (11.7-14.2); RDW Standard Deviation 50.4 fL (35.1-46.3); Red Blood Cell Count 3.12 M/mm3 (3.80-5.20); White Blood Cell Count 5.94 K/mm3 (4.00-11.30)
[2020-02-13 05:41] LABS: Albumin, Blood 2.6 g/dL (3.4-5.0); Anion Gap 2 mmol/L (6-16); Blood Urea Nitrogen 54 mg/dL (8-24); Bun/Creatinine Ratio 25.4 (12.0-20.0); CO2, Blood 26 mmol/L (21-32); Calcium, Blood 7.1 mg/dL (8.5-10.1); Chloride, Blood 112 mmol/L (98-108); Creatinine, Blood 2.13 mg/dL (0.40-1.00); Glomerular Filtration Rate 24 (60-); Glucose, Blood 98 mg/dL (70-99); Magnesium, Blood 1.9 mg/dL (1.6-2.4); Phosphorus, Blood 4.1 mg/dL (2.5-4.9); Potassium, Blood 5.8 mmol/L (3.5-5.5); Sodium, Blood 140 mmol/L (136-145)
--- NOTE | 2020-02-13 07:30 | NUR ---
ASSUMED PATIENT CARE. PATIENT RESTING COMFORTABLY IN BED, NO SIGNS OF ACUTE DISTRESS. WCTM.
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
--- NOTE | 2020-02-13 18:31 | NUR ---
NO ACUTE EVENTS THIS SHIFT. PATIENT WORKED WITH PT/OT TODAY, SHOWED IMPROVEMENT IN TRANSFER ABILITY, X2-3 STANDBY WITH GAITBELT AND WALKER. PATIENT HYPERTENSIVE SECOND HALF OF SHIFT AFTER TRANSFER FROM CHAIR TO BED, RECHECKED AND 150S/70S. PATIENT DENIED CHEST PAIN THIS SHIFT, COMPLAINS OF JOINT/BACK PAIN. K+ REMAINS HIGH AT 5.8, KAYEXELATE ORDERED AND GIVEN TODAY, PATIENT REMAINS ON TELE FOR CONTINUED CARDIAC MONITORING UNTIL K+ IMPROVES. IV FLUIDS DC'D TODAY. PATIENT TOLERATED ROOM AIR WELL THIS SHIFT.
--- NOTE | 2020-02-13 20:06 | NUR ---
191 PT ASSISTED BACK BED FROM BSC; PT MOVES VERY SLOWLY AND REQUIRED ASSISTANCE X 4 TO REPOSITION IN BED; PT INCONTINENT LARGE AMOUNT YELLOW STOOL; REPORT RECEIVED FROM Dexmo. 2000 PTS SENEKOT AND ROBERTO HELD DUE TO DIARRHEA THIS EVENING.
--- NOTE | 2020-02-14 03:25 | NUR ---
SHIFT SUMMARY: 84 Y/O MORBID OBESE FEMALE HAD RESTLESS NIGHT AT TIMES WITH PATIENT UNABLE TO GET COMFORTABLE WITH NUMEROUS C/O; PT PARTICIPATES VERY MINIMALLY WITH ADLS AND PERSONAL CARE AT TIMES; PT REQUIRES 100% ASSISTANCE WITH TURNING, CLEANING UP SHE INCONTINENT URINE AND REQUIRES ATTENDS DIAPERS; PT C/O BACK PAIN RATED 8/10 WITH NORCO 7.5/325MG PO GIVEN TWICE WITH RELIEF FELT; PT AT TIMES VERY RUDE AND FREQUENTLY SWEARS AND CUSSES AT STAFF WITH THIS NURSE REMINDING PATIENT THAT THIS BEHAVIOR IS INAPPROPRIATE; TELEMETRY REFLECTS NSR PER RADHA--UPHOLSTERY HANDLER; PT AT THIS TIME IS DECONDITIONED AND REQUIRES 2-3 ASSISTANCE AND WOULD BENEFIT FROM LTC PLACEMENT FOR REHAB FOR PERIOD OF TIME TO REGAIN STRENGTH; BED LOW POSITION WITH CALL LIGHT AT SIDE; WORE O2 AT 4L/M PER NASAL CANNULA ALL SHIFT WITH SATS AVERAGING 96%.
[2020-02-14 03:54] LABS: BASOPHILS ABSOLUTE AUTO 0.01 K/mm3 (0.00-0.23); BASOPHILS PERCENT AUTO 0 % (0-2); EOSINOPHILS ABSOLUTE AUTO 0.06 K/mm3 (0.00-0.68); EOSINOPHILS PERCENT AUTO 1 % (0-6); Hematocrit 32.4 % (33.0-51.0); Hemoglobin 9.7 g/dL (11.5-16.0); IMMATURE GRAN ABSOLUTE AUTO 0.09 K/mm3 (0.00-0.10); IMMATURE GRAN PERCENT AUTO 2 % (0-1); LYMPHOCYTES ABSOLUTE AUTO 1.35 K/mm3 (0.84-5.20); LYMPHOCYTES PERCENT AUTO 30 % (21-46); MONOCYTES ABSOLUTE AUTO 1.56 K/mm3 (0.16-1.47); MONOCYTES PERCENT AUTO 35 % (4-13); Mean Corpuscular HGB 29.8 pg (26.0-34.0); Mean Corpuscular HGB Conc 29.9 g/dL (31.5-36.5); Mean Corpuscular Volume 100 fL (80-100); NEUTROPHILS ABSOLUTE AUTO 1.39 K/mm3 (1.96-9.15); NEUTROPHILS PERCENT AUTO 31 % (41-73); RDW Coefficient Variation 13.3 % (11.7-14.2); RDW Standard Deviation 48.6 fL (35.1-46.3); Red Blood Cell Count 3.25 M/mm3 (3.80-5.20); White Blood Cell Count 4.46 K/mm3 (4.00-11.30)
[2020-02-14 04:23] LABS: Albumin, Blood 2.5 g/dL (3.4-5.0); Anion Gap 4 mmol/L (6-16); Blood Urea Nitrogen 44 mg/dL (8-24); Bun/Creatinine Ratio 26.5 (12.0-20.0); CO2, Blood 26 mmol/L (21-32); Calcium, Blood 7.3 mg/dL (8.5-10.1); Chloride, Blood 113 mmol/L (98-108); Creatinine, Blood 1.66 mg/dL (0.40-1.00); Glomerular Filtration Rate 31 (60-); Glucose, Blood 117 mg/dL (70-99); Magnesium, Blood 1.9 mg/dL (1.6-2.4); Phosphorus, Blood 3.5 mg/dL (2.5-4.9); Potassium, Blood 5.1 mmol/L (3.5-5.5); Sodium, Blood 143 mmol/L (136-145)
[2020-02-14 05:12] LABS: Mean Platelet Volume 11.1 fL (9.1-12.4); Platelet Count 103 K/mm3 (150-400)
--- NOTE | 2020-02-14 07:17 | NUR ---
ASSUMED PATIENT CARE. PATIENT ON BEDSIDE COMMODE, CONVERSING WITH NURSING STAFF. NO SIGNS OF ACUTE DISTRESS, WCTM.
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
--- NOTE | 2020-02-14 18:07 | NUR ---
PATIENT TRANSFERED TO MEDICAL, NEFTALI CORREA GAVE REPORT TO CHRISTINA CORREA.
--- NOTE | 2020-02-14 18:44 | NUR ---
PT ARRIVED TO THE UNIT. ORIENTED TO THE ROOM. RECIEVED REPORT FROM NEFTALI CORREA.
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
[2020-02-15 05:24] LABS: BASOPHILS ABSOLUTE AUTO 0.01 K/mm3 (0.00-0.23); BASOPHILS PERCENT AUTO 0 % (0-2); EOSINOPHILS ABSOLUTE AUTO 0.07 K/mm3 (0.00-0.68); EOSINOPHILS PERCENT AUTO 2 % (0-6); Hematocrit 32.3 % (33.0-51.0); IMMATURE GRAN ABSOLUTE AUTO 0.04 K/mm3 (0.00-0.10); IMMATURE GRAN PERCENT AUTO 1 % (0-1); LYMPHOCYTES ABSOLUTE AUTO 1.49 K/mm3 (0.84-5.20); LYMPHOCYTES PERCENT AUTO 36 % (21-46); MONOCYTES ABSOLUTE AUTO 1.36 K/mm3 (0.16-1.47); MONOCYTES PERCENT AUTO 33 % (4-13); Mean Corpuscular HGB 30.3 pg (26.0-34.0); Mean Corpuscular Volume 98 fL (80-100); Mean Platelet Volume 10.8 fL (9.1-12.4); NEUTROPHILS ABSOLUTE AUTO 1.15 K/mm3 (1.96-9.15); NEUTROPHILS PERCENT AUTO 28 % (41-73); Platelet Count 112 K/mm3 (150-400); RDW Coefficient Variation 13.1 % (11.7-14.2); RDW Standard Deviation 46.7 fL (35.1-46.3); White Blood Cell Count 4.12 K/mm3 (4.00-11.30)
[2020-02-15 05:40] LABS: Albumin, Blood 2.8 g/dL (3.4-5.0); Albumin/Globulin Ratio 0.7 (0.8-1.8); Bilirubin, Total 0.4 mg/dL (0.1-1.0); Bun/Creatinine Ratio 21.4 (12.0-20.0); Calcium, Blood 8.2 mg/dL (8.5-10.1); Creatinine, Blood 1.4 mg/dL (0.40-1.00); Globulin, Blood 4.1 g/dL (2.2-4.0); Magnesium, Blood 1.8 mg/dL (1.6-2.4); Potassium, Blood 4.6 mmol/L (3.5-5.5); Total Protein, Blood 6.9 g/dL (6.4-8.2)
--- NOTE | 2020-02-15 17:46 | NUR ---
SHIFT SUMMARY PATIENT MEDICATED X1 FOR PAIN, X1 FOR NAUSEA, AND X1 WITH PRN LABETALOL FOR BP 218/95. DR. KIRKLAND UPDATED, NEW ORDERS FOR TID PO HYDRALAZINE. PATIENT UP SBA W/FWW TO BSC/CHAIR. CALL LIGHT IN REACH.
--- NOTE | 2020-02-16 04:53 | NUR ---
TACTICAL INTELLIGENCE OFFICER SUMMARY ALERT AND ORIENTED. 1 PERSON ASSIST TO BSC USING FWW. C/O PAIN AROUND 0100, MEDICATED PER EMAR. APPEARED TO SLEEP SOME OF SHIFT. EXPERIENCES DIFFICULTIES WITH REPOSITIONING, PROVIDED ASSISTANCE TO INCREASE COMFORT. NO ACUTE CHANGES. BED IN LOWEST POSITION WITH CALL LIGHT IN REACH. WILL CONTINUE TO MONITOR AND REPORT TO ONCOMING RN.
[2020-02-16 05:36] LABS: BASOPHILS ABSOLUTE AUTO 0.01 K/mm3 (0.00-0.23); BASOPHILS PERCENT AUTO 0 % (0-2); EOSINOPHILS ABSOLUTE AUTO 0.05 K/mm3 (0.00-0.68); EOSINOPHILS PERCENT AUTO 1 % (0-6); Hematocrit 31.9 % (33.0-51.0); Hemoglobin 9.9 g/dL (11.5-16.0); IMMATURE GRAN ABSOLUTE AUTO 0.08 K/mm3 (0.00-0.10); IMMATURE GRAN PERCENT AUTO 2 % (0-1); LYMPHOCYTES ABSOLUTE AUTO 1.65 K/mm3 (0.84-5.20); LYMPHOCYTES PERCENT AUTO 39 % (21-46); MONOCYTES ABSOLUTE AUTO 1.35 K/mm3 (0.16-1.47); MONOCYTES PERCENT AUTO 32 % (4-13); Mean Corpuscular Volume 97 fL (80-100); Mean Platelet Volume 10.6 fL (9.1-12.4); NEUTROPHILS PERCENT AUTO 26 % (41-73); Platelet Count 106 K/mm3 (150-400); RDW Coefficient Variation 13.2 % (11.7-14.2); RDW Standard Deviation 46.5 fL (35.1-46.3); White Blood Cell Count 4.24 K/mm3 (4.00-11.30)
[2020-02-16 05:57] LABS: Percent Saturation 25.5 % (15.0-50.0)
[2020-02-16 06:00] LABS: Anion Gap 5 mmol/L (6-16); Blood Urea Nitrogen 28 mg/dL (8-24); Bun/Creatinine Ratio 18.7 (12.0-20.0); CO2, Blood 28 mmol/L (21-32); Calcium, Blood 8.4 mg/dL (8.5-10.1); Chloride, Blood 109 mmol/L (98-108); Glomerular Filtration Rate 35 (60-); Glucose, Blood 93 mg/dL (70-99); Magnesium, Blood 1.8 mg/dL (1.6-2.4); Phosphorus, Blood 3.1 mg/dL (2.5-4.9); Potassium, Blood 5.1 mmol/L (3.5-5.5); Sodium, Blood 142 mmol/L (136-145)
--- NOTE | 2020-02-16 18:07 | NUR ---
SHIFT SUMMARY PATIENT FELT NAUSEATED AND C/O ABD PAIN/CONSTIPATION. HAD MED, HARD BM. BOWEL CARE GIVEN AND PRUNES PROVIDED. PRN ZOFRAN GIVEN PER ORDERS. INTERMITENT CRYING SECONDARY TO WANTING TO DISCHARGE AND HOME LOSS. THIS RN OFFERED THERAPEUTIC PRESENCE, TOUCH, AND LISTENING, FREQUENTLY THROUGHOUT SHIFT.
--- NOTE | 2020-02-17 04:14 | NUR ---
APPARATUS ENGINEERING TECHNOLOGIST SUMMARY ALERT AND ORIENTED. 1 PERSON ASSIST WITH FWW TO BSC. COOPERATIVE WITH CARE AND USES CALL LIGHT APPROPRIATELY. C/O JOINT PAIN, MEDICATED PER EMAR WITH SOME RELIEF. BP CONTINUES TO BE ELEVATED. 2100 DOSE OF LOPRESSOR HELD R/T PULSE <60. CURB BUILDER PHYSICIAN NOTIFIED, ONE TIME DOSE OF CLONIDINE WAS GIVEN. BREATHING IS UNLABORED, DENIES DISCOMFORT AT THIS TIME. BED IN LOWEST POSITION WITH CALL LIGHT IN REACH. WILL CONTINUE TO MONITOR AND REPORT TO ONCOMING RN.
[2020-02-17 05:01] LABS: BASOPHILS ABSOLUTE AUTO 0.01 K/mm3 (0.00-0.23); BASOPHILS PERCENT AUTO 0 % (0-2); EOSINOPHILS ABSOLUTE AUTO 0.06 K/mm3 (0.00-0.68); EOSINOPHILS PERCENT AUTO 1 % (0-6); Hematocrit 33.7 % (33.0-51.0); Hemoglobin 10.4 g/dL (11.5-16.0); IMMATURE GRAN PERCENT AUTO 8 % (0-1); LYMPHOCYTES PERCENT AUTO 27 % (21-46); MONOCYTES ABSOLUTE AUTO 1.37 K/mm3 (0.16-1.47); MONOCYTES PERCENT AUTO 28 % (4-13); Mean Corpuscular HGB Conc 30.9 g/dL (31.5-36.5); Mean Corpuscular Volume 97 fL (80-100); NEUTROPHILS ABSOLUTE AUTO 1.74 K/mm3 (1.96-9.15); NEUTROPHILS PERCENT AUTO 36 % (41-73); Platelet Count 106 K/mm3 (150-400); RDW Coefficient Variation 13.1 % (11.7-14.2); RDW Standard Deviation 46.4 fL (35.1-46.3); Red Blood Cell Count 3.47 M/mm3 (3.80-5.20); White Blood Cell Count 4.88 K/mm3 (4.00-11.30)
[2020-02-17 05:17] LABS: Anion Gap 6 mmol/L (6-16); Blood Urea Nitrogen 28 mg/dL (8-24); Bun/Creatinine Ratio 16.8 (12.0-20.0); CO2, Blood 27 mmol/L (21-32); Calcium, Blood 8.5 mg/dL (8.5-10.1); Chloride, Blood 107 mmol/L (98-108); Creatinine, Blood 1.67 mg/dL (0.40-1.00); Glomerular Filtration Rate 31 (60-); Glucose, Blood 104 mg/dL (70-99); Magnesium, Blood 1.7 mg/dL (1.6-2.4); Phosphorus, Blood 3.7 mg/dL (2.5-4.9); Potassium, Blood 4.7 mmol/L (3.5-5.5); Sodium, Blood 140 mmol/L (136-145)
[2020-02-17 05:37] LABS: BASOPHILS PERCENT MAN 0 % (0-2); EOSINOPHILS ABSOLUTE MAN 0.04 K/mm3 (0.00-0.68); EOSINOPHILS PERCENT MAN 1 % (0-6); LYMPHOCYTES ABSOLUTE MAN 0.97 K/mm3 (0.84-5.20); LYMPHOCYTES PERCENT MAN 20 % (21-46); MONOCYTES ABSOLUTE MAN 0.97 K/mm3 (0.16-1.47); MONOCYTES PERCENT MAN 20 % (4-13); NEUTROPHILS ABSOLUTE MAN 2.87 K/mm3 (1.96-9.15); SEG NEUTROPHILS PERCENT MAN 59 % (41-73); TOTAL CELLS COUNTED 100
--- NOTE | 2020-02-17 09:59 | NUR ---
NEW ONSET PAIN, NUMBNESS, AND FACIAL PRESSURE AT 0710 THE RN ENTERED THE ROOM TO FIND PATIENT SITTING ON THE SIDE OF THE BED. C/O LEFT JAW PAIN, L FACIAL PRESSURE, AND LEFT SIDED NUMBNESS TO ENTIRE BODY. LEFT SIDED FACIAL DROOP PRESENT WHEN ASKED TO SMILE. SPEECH CLEAR, PULMONOLOGY PHYSICIAN EQUAL, BLE/BUE STRENGTH EQUAL. BP 130/74. DR. RAY IMMEDIATLY NOTIFIED. ORDERS PLACED. AT 0720 SMILE EQUAL, BUT LEFT MOUTH DROOP STILL PRESENT WHEN SPEAKING. FACIAL PRESSURE STILL PRESENT, LEFT SIDED JAW PAIN AND LEFT SIDED NUMBNESS.
[2020-02-17] MEDS ORDERED: CLON.1 PO (11:21)
[2020-02-17] MEDS ORDERED: HYDRA50 PO (11:21)
--- NOTE | 2020-02-17 13:51 | NUR ---
DISCHARGE DISCHARGED HOME WITH SON, CAM. SON AND PT VERBALIZED UNDERSTANDING OF THE DISCHARGE INSTRUCTIONS, ALL QUESTIONS WERE ANSWERED. RX'S SENT TO [facility], PER THEIR REQUEST. ALL PERSONAL BELONGINGS IN PT POSSESSION AT TIME OF DISCHARGE.
== END 2020-02-17 13:41 | disposition home health service (06) | DRG 682 ==
LOC: ER 11:02 → PCU 13:19 → MEDS 13:19 → PCU 15:13 → MEDS 02-14 17:52 → ENPENDDIS 02-17 10:30 → MEDS 02-17 13:41
PROVIDERS: Emergency Medicine; Internal Medicine Nephrology; Nurse Practitioner Acute Care; ADMIT Internal Medicine
DX: N17.9 Acute kidney failure, unspecified (principal); G92 Toxic encephalopathy; E66.2 Morbid (severe) obesity with alveolar hypoventilation; E87.2 Acidosis; Z68.43 Body mass index [BMI] 50.0-59.9, adult; E87.5 Hyperkalemia; N18.3 Chronic kidney disease, stage 3 (moderate); K21.9 Gastro-esophageal reflux disease without esophagitis; E78.00 Pure hypercholesterolemia, unspecified; Z87.891 Personal history of nicotine dependence; I12.9 Hypertensive chronic kidney disease with stage 1 through stage 4 chronic kidney disease, or unspecified chronic kidney disease; G89.4 Chronic pain syndrome; I48.0 Paroxysmal atrial fibrillation; N25.81 Secondary hyperparathyroidism of renal origin; E86.1 Hypovolemia; Z86.711 Personal history of pulmonary embolism; I16.0 Hypertensive urgency
CPT/HCPCS: 36415; 70450; 72100; 73502; 76770; 80048; 80053; 80069; 80162; 81001; 82550; 82728; 83540; 83550; 83735; 84100; 84132; 84484; 85025; 85027; 87086; 93005; 93010; 94762; 96361; 96374; 96375; 97110; 97116; 97162; 97166; 97530; 97535; 99285-25; A9270-GY; J0295; J1815; J2405; J2916; J3010; J7030

== ENCOUNTER 2020-04-09 01:38 | Emergency (ER) | payer OTHER ==
[~2020-04-09] VITALS: Ht 165.1 cm; Wt 128.8 kg
[~2020-04-09 01:38] MED LIST changes: +CEFP200 PO; +CLON.1 PO; +Cetirizine HCl10 MG PO; +FLUTICASONE PRO16 GM; +HYDRA50 PO; +NORCO PO; +OLMESARTAN MEDO20 MG PO; +PREGABALIN150 MG PO
[2020-04-09 04:00] LABS: Hemoglobin 11.2 g/dL (11.5-16.0)
[2020-04-09 04:06] LABS: Hematocrit 35.5 % (33.0-51.0); Mean Corpuscular HGB 29.4 pg (26.0-34.0); Mean Corpuscular HGB Conc 31.5 g/dL (31.5-36.5); Mean Corpuscular Volume 93 fL (80-100); Platelet Count 113 K/mm3 (150-400); RDW Coefficient Variation 13.3 % (11.7-14.2); RDW Standard Deviation 45.6 fL (35.1-46.3); Red Blood Cell Count 3.81 M/mm3 (3.80-5.20); White Blood Cell Count 6.92 K/mm3 (4.00-11.30)
[2020-04-09 04:17] LABS: Albumin, Blood 3.1 g/dL (3.4-5.0); Albumin/Globulin Ratio 0.7 (0.8-1.8); Bilirubin, Total 0.3 mg/dL (0.1-1.0); Calcium, Blood 8.8 mg/dL (8.5-10.1); Creatinine, Blood 1.43 mg/dL (0.40-1.00); Globulin, Blood 4.2 g/dL (2.2-4.0); Total Protein, Blood 7.3 g/dL (6.4-8.2)
[2020-04-09 04:37] LABS: BASOPHILS PERCENT MAN 0 % (0-2); EOSINOPHILS PERCENT MAN 3 % (0-6); LYMPHOCYTES ABSOLUTE MAN 1.79 K/mm3 (0.84-5.20); LYMPHOCYTES PERCENT MAN 26 % (21-46); MONOCYTES ABSOLUTE MAN 0.76 K/mm3 (0.16-1.47); MONOCYTES PERCENT MAN 11 % (4-13); NEUTROPHILS ABSOLUTE MAN 4.15 K/mm3 (1.96-9.15); SEG NEUTROPHILS PERCENT MAN 60 % (41-73); TOTAL CELLS COUNTED 100
== END 2020-04-09 06:23 | disposition home or self-care (01) ==
LOC: ER 01:38
PROVIDERS: Emergency Medicine
DX: N39.0 Urinary tract infection, site not specified (principal); N20.0 Calculus of kidney
CPT/HCPCS: 36415; 74176; 80053; 83605; 85025; 96361; 96365; 96366; 96375; 99284-25; A9270-GY; J0696; J1170; J2405; J7030

== ENCOUNTER 2020-04-14 04:34 | Inpatient (IN) | payer OTHER ==
[~2020-04-14] VITALS: Ht 165.1 cm; Wt 124.0 kg
[~2020-04-14 04:34] MED LIST changes: +CATAPRES-TTS 31 EACH TOP; -CLON.1 PO
[2020-04-14 05:07] LABS: BASOPHILS ABSOLUTE AUTO 0.03 K/mm3 (0.00-0.23); BASOPHILS PERCENT AUTO 0 % (0-2); EOSINOPHILS ABSOLUTE AUTO 0.25 K/mm3 (0.00-0.68); EOSINOPHILS PERCENT AUTO 3 % (0-6); Hemoglobin 12.2 g/dL (11.5-16.0); IMMATURE GRAN ABSOLUTE AUTO 0.39 K/mm3 (0.00-0.10); IMMATURE GRAN PERCENT AUTO 4 % (0-1); LYMPHOCYTES ABSOLUTE AUTO 2.59 K/mm3 (0.84-5.20); LYMPHOCYTES PERCENT AUTO 27 % (21-46); MONOCYTES ABSOLUTE AUTO 1.79 K/mm3 (0.16-1.47); MONOCYTES PERCENT AUTO 19 % (4-13); Mean Corpuscular HGB 29.5 pg (26.0-34.0); Mean Corpuscular HGB Conc 30.5 g/dL (31.5-36.5); Mean Corpuscular Volume 97 fL (80-100); Mean Platelet Volume 10.5 fL (9.1-12.4); NEUTROPHILS ABSOLUTE AUTO 4.55 K/mm3 (1.96-9.15); NEUTROPHILS PERCENT AUTO 47 % (41-73); Platelet Count 194 K/mm3 (150-400); RDW Coefficient Variation 13.3 % (11.7-14.2); RDW Standard Deviation 47.6 fL (35.1-46.3); Red Blood Cell Count 4.14 M/mm3 (3.80-5.20)
[2020-04-14 05:23] LABS: International Normalized Ratio 1.12; Prothrombin Time Results 11.9 Sec (9.7-11.5)
[2020-04-14 05:25] LABS: Alanine Aminotransfer (ALT/SGP 13 U/L (12-78); Albumin, Blood 3.4 g/dL (3.4-5.0); Albumin/Globulin Ratio 0.7 (0.8-1.8); Alk Phos 54 U/L (50-136); Anion Gap 16 mmol/L (6-16); Aspartate Aminotrans (AST/SGOT 13 U/L (12-37); Bilirubin, Total 0.3 mg/dL (0.1-1.0); Blood Urea Nitrogen 20 mg/dL (8-24); Bun/Creatinine Ratio 13.1 (12.0-20.0); CO2, Blood 16 mmol/L (21-32); Calcium, Blood 9.4 mg/dL (8.5-10.1); Chloride, Blood 107 mmol/L (98-108); Creatinine, Blood 1.53 mg/dL (0.40-1.00); Ethanol (Alcohol), Blood, Med <3 mg/dL; Globulin, Blood 4.6 g/dL (2.2-4.0); Glomerular Filtration Rate 34 (60-); Glucose, Blood 150 mg/dL (70-99); Potassium, Blood 3.6 mmol/L (3.5-5.5); Sodium, Blood 139 mmol/L (136-145)
[2020-04-14 05:38] LABS: Base Excess Venous -14.8 mmol/L; Bicarbonate Venous 13.8 mmol/L (24.0-30.0); PO2 Venous 96.6 mmHg (38-42)
[2020-04-14 05:39] LABS: pH Blood Venous 7.16 (7.34-7.37)
[2020-04-14] MEDS ORDERED: NORCO 7.5-3251 EAC3 PO (11:57)
[2020-04-14 12:57] LABS: Base Excess Venous -2.6 mmol/L; Bicarbonate Venous 22.8 mmol/L (24.0-30.0); PCO2 Venous 33.6 mmHg (38-42); PO2 Venous 146 mmHg (38-42); pH Blood Venous 7.42 (7.34-7.37)
[2020-04-14 13:52] LABS: Source, Urine Catheter
[2020-04-14 14:11] LABS: Bilirubin, Urine Neg (Neg); Blood, Urine 5+ (Neg); Glucose Qualitative, Urine Neg (Neg); Ketones, Urine 1+ (Neg); Leukocyte Esterase, Urine 2+ (Neg); Nitrite, Urine Neg (Neg); Protein, Urine 4+ (Neg); Specific Gravity, Urine 1.015 (1.003-1.022); Urobilinogen, Urine NORM (Normal)
[2020-04-14 14:17] LABS: Appearance, Urine Hazy (Clear); Color, Urine Yellow (P-Yellow)
[2020-04-14 14:33] LABS: Bacteria Few /hpf; Hyaline Casts 0-2 /lpf (0-2); Red Blood Cells, Urine 25-50 /hpf (0-2); Squamous Epithelial Cells Rare /hpf (Few); White Blood Cells, Urine 25-50 /hpf (0-5); Yeast/Fungi Urine Mod /hpf
--- NOTE | 2020-04-14 15:30 | NUR ---
ICU ADMISSION / INTUBATION: REPORT RECEIVED FROM SUNNY CORBIN IN ED. PT ARRIVED TO ICU-01 AT APPROX 1345. SHE NOTIFIES THIS RN THAT THE PT HAS EXPERIENCED ANOTHER TONIC-CLONIC SEIZURE BETWEEN TIME OF REPORT & PT's ARRIVAL TO UNIT. SHE HAD BEEN MEDICATED AGAIN W/ 2 MG IV ATIVAN AT THAT TIME & APPEARS POSTICTAL ON ARRIVAL TO UNIT, EYES OPEN BUT PT IS NOT FOCUSED & UNABLE TO FOLLOW COMMANDS. SHE CLEARS BRIEFLY IN RESPONSE TO HER NAME BEING SAID BUT IS OTHERWISE ALTERED IN MENTATION. SHORTLY AFTER PT ARRIVAL TO UNIT, SHE CONTINUES W/ SEIZURE ACTIVITY. EYES ARE TURNED W/ DOWNWARD-LEFT GAZE & PROFOUND NYSTAGMUS IS NOTED. SHE IS UNRESPONSIVE TO ANY STIMULUS & HAS SLIGHT JERKING MOVEMENT NOTED TO RLE. A TOTAL OF 6 MG ATIVAN HAD BEEN GIVEN SINCE ONSET OF THESE SYMPTOMS BEFORE RESOLUTION OCCURED & PT AGAIN BECAME POSTICTAL. DR GOETZ AWARE OF PT STATUS AT THIS TIME & HAS BEEN AT BEDSIDE TO EVAL PT FOR ORDERED CONSULT. SHE FEELS THAT INTUBATION & PROPOFOL USE MAY BE BEST FOR THIS PT IF SEIZURE ACTIVITY DOES NOT RESOLVE W/ ATIVAN. SHE HAS BEEN NOTIFIED THAT THE PT IS DNR STATUS & HAS CONTACTED THE PT's SON, DHARMESH, TO DETERMINE THE PT's WISHES REGARDING INTUBATION IN THIS CIRCUMSTANCE SHE IS NOT CURRENTLY ABLE TO EXPRESS HER OWN WISHES. HE FEELS THAT SHE WOULD WISH TO BE INTUBATED IN THIS SITUATION, BUT WOULD CONTINUE TO NOT WANT CARDIAC RESUSCITATION IN THE FORM OF COMPRESSIONS, SHOCK OR MEDS. 2MG ATIVAN AGAIN GIVEN PT BEGINS TO HAVE NOTED SEIZURE ACTIVITY W/ DOWNWARD-LEFT GAZE & INCREASING NYSTAGMUS. THE DECISION HAS BEEN MADE TO INTUBATE THIS PT. 1500 - CHAD TUCKER (RT), THIS RN & TEJ Ghosh, STATIONS SUPERINTENDENT, AT BEDSIDE FOR INTUBATION. 1503 - TIME OUT COMPLETED 1505 - 20 MG ETOMIDATE GIVEN & FLUSHED 1506 - GLIDESCOPE IN & PT INTUBATED W/ 7.5 ETT, NOTED 23.0 CM AT GUMS. +ETCO2 NOTED & BILATERAL LUNG SOUNDS AUSCULTATED BY DR GOETZ. CHAD Hawk, RT, BAGGING PT W/ O2 SATS > 92%. 1509 - OGT PLACED BY THIS RN W/ GURGLING NOTED ON INSTILLATION OF AIR & NOTED GASTIC CONTENT RETURN. 1510 - PROPOFOL DRIP HUNG, PT TOLERATING WELL. BILAT SOFT WRIST RESTRAINTS PLACED TO PREVENT ACCIDENTAL SELF-EXTUBATION. STAT CXR ORDERED & COMPLETED. ETT & OGT ARE BOTH IN GOOD POSITION, READ BY DR GOETZ AT BEDSIDE. WAITER/WAITRESS TOURIST CLASSINNA, HAS BEEN CONTACTED & WILL BE AT BEDSIDE SHORTLY TO COMPLETE EEG.
[2020-04-14 16:54] LABS: U Amphetamine Screen Not Detected; U Barbituate Screen Not Detected; U Benzodiazapine Screen Not Detected; U Buprenorphine Screen Not Detected; U Cannabinoids Screen Not Detected; U Cocaine Screen Not Detected; U Methadone Screen Not Detected; U Methamphetamine Screen Not Detected; U Opiates Screen DETECTED; U Oxycodone Screen Not Detected; U Phencyclidine Screen Not Detected; U Propoxyphene Screen Not Detected
[2020-04-14 17:16] LABS: PCO2 Arterial 37.7 mmHg (35-45); PO2 Arterial 92.9 mmHg (80-100); pH Blood Arterial 7.39 (7.35-7.45)
--- NOTE | 2020-04-14 19:16 | NUR ---
SHIFT SUMMARY: NO ACUTE CHANGES SINCE PRIOR UPDATES. PT REMAINS SEDATED & INTUBATED. NO FURTHER SEIZURE ACTIVITY HAS BEEN NOTED & PT's EYES ARE MIDLINE W/ NO NYSTAGMUS NOTED SINCE PROPOFOL INFUSING. VENT SETTINGS UNCHANGED. VSS. WILL CONTINUE TO MONITOR & REPORT OFF TO ONCOMING RN.
--- NOTE | 2020-04-14 20:34 | NUR ---
SHIFT ASSESSMENT ASSUMED CARE OF PT @ 1900, REPORT RECV'D FROM TYE CORREA. PT INTUBATED AND SEDATED, PROPOFOL @ 30MCG. VENT SETTINGS: AC-14, TV-400, FIO2-40%, PEEP-5. NO APPARENT SEIZURE ACTIVITY AT THIS TIME, NO NYSTAGMUS. SEIZURE PADS IN PLACE. BL WRIST RESTRAINTS IN PLACE TO PROTECT ET TUBE. LS CLEAR T/O. NS ON THE E COMMERCE SPECIALIST. SALDIVAR CATH PATENT, DRAINING TO GRAVITY. WILL CONTINUE TO MONITOR.
[2020-04-15 03:56] LABS: BASOPHILS ABSOLUTE AUTO 0.01 K/mm3 (0.00-0.23); BASOPHILS PERCENT AUTO 0 % (0-2); EOSINOPHILS ABSOLUTE AUTO 0.06 K/mm3 (0.00-0.68); EOSINOPHILS PERCENT AUTO 1 % (0-6); Hematocrit 36.4 % (33.0-51.0); Hemoglobin 11.7 g/dL (11.5-16.0); IMMATURE GRAN ABSOLUTE AUTO 0.08 K/mm3 (0.00-0.10); IMMATURE GRAN PERCENT AUTO 1 % (0-1); LYMPHOCYTES ABSOLUTE AUTO 1.18 K/mm3 (0.84-5.20); LYMPHOCYTES PERCENT AUTO 13 % (21-46); MONOCYTES ABSOLUTE AUTO 1.89 K/mm3 (0.16-1.47); MONOCYTES PERCENT AUTO 20 % (4-13); Mean Corpuscular HGB 29.8 pg (26.0-34.0); Mean Corpuscular HGB Conc 32.1 g/dL (31.5-36.5); Mean Corpuscular Volume 93 fL (80-100); Mean Platelet Volume 10.7 fL (9.1-12.4); NEUTROPHILS ABSOLUTE AUTO 6.18 K/mm3 (1.96-9.15); NEUTROPHILS PERCENT AUTO 66 % (41-73); Platelet Count 164 K/mm3 (150-400); RDW Coefficient Variation 13.5 % (11.7-14.2); RDW Standard Deviation 45.8 fL (35.1-46.3); Red Blood Cell Count 3.92 M/mm3 (3.80-5.20)
[2020-04-15 04:11] LABS: Bun/Creatinine Ratio 9.9 (12.0-20.0); Calcium, Blood 8.5 mg/dL (8.5-10.1); Creatinine, Blood 1.31 mg/dL (0.40-1.00); Magnesium, Blood 1.6 mg/dL (1.6-2.4); Phosphorus, Blood 2.4 mg/dL (2.5-4.9); Potassium, Blood 3.5 mmol/L (3.5-5.5)
[2020-04-15 05:11] LABS: PCO2 Arterial 35.9 mmHg (35-45); PO2 Arterial 92.5 mmHg (80-100); pH Blood Arterial 7.41 (7.35-7.45)
--- NOTE | 2020-04-15 05:35 | NUR ---
SHIFT SUMMARY PT REMAINS INTUBATED AND SEDATED. FIO2 DECREASED TO 30%, OTHER VENT SETTINGS REMAIN THE SAME. SEDATION VACATION THIS AM, PT HAD NO SPONTANEOUS MOVEMENT, DID NOT FOLLOW COMMANDS. VSS, WILL CONTINUE TO MONITOR.
--- NOTE | 2020-04-15 08:30 | NUR ---
ASSUMED CARE BEDSIDE REPORT RECIEVED. PT IS INTUBATED AND SEDATED. PT DOES NOT FOLLOW ANY DIRECTIONS OR MOVE SPONTANEOUSLY. PT MINIMALLY RESPONSIVE TO NOXIOUS STIMULI WITH SLIGHT WITHDRAWAL IN EXTREMIES. COUGH AND GAG PRESENT. PT SEDATED WITH PROPOFOL AT 30 MCG/KG/MIN. VITAL SIGNS STABLE. PT HYPERTENSIVE. PRN LABETALOL GIVEN. PT WITH 3 IV SITES, TWO INFILTRATED. ORDERS RECIEVED TO PLACE PICC LINE AT THIS TIME. SALDIVAR IN PLACE WITH YELLOW URINE OUTPUT NOTED. OGT IN PLACE TO LIS WITH MINIMAL GREEN OUTPUT NOTED. SBW RESTRAINTS IN PLACE. WILL CONTINUE TO MONITOR.
--- NOTE | 2020-04-15 17:01 | NUR ---
SHIFT SUMMARY NO ACUTE CHANGES THIS SHIFT. PT REMAINS INTUBATED AND SEDATED. PT WITH VENT SETTINGS UNCHANGED AT AC 14, TV 400, PEEP 5, FIO2 30%. PT WITH MINIMAL SECRETIONS WITH ETT SUCTION. PT STARTING TO MOVE BLE'S SPONTANEOUSLY. PT DOES NOT FOLLOW COMMANDS. COUGH AND GAG REMAIN PRESENT. PICC PLACED THIS AM WITH NS INFUSING TKO AND PROPOFOL AT 30 MCG/KG/MIN. OGT IN PLACE, TF STARTED AT 15 ML/HR. SALDIVAR TEMP PROBE REMAINS IN PLACE WITH YELLOW OUTPUT NOTED. SBW RESTRAINTS REMAIN IN PLACE. PT REMAINS HYPERTENSIVE, OTHERWISE VITAL SIGNS STABLE. PT SON IN TO VISIT THIS AFTERNOON. NO SEIZURE LIKE ACTIVITY NOTED. WILL CONTINUE TO MONITOR AND REPORT OFF TO ONCOMING RN.
--- NOTE | 2020-04-15 20:49 | NUR ---
CARE ASSUMED 1900 PT INTUBATED AND SEDATED. PROPOFOL AT 30 MCG/KG/MIN AND DECREASED TO 25 MCG/KG/MIN DUE TO PT NOT RESPONDING TO NOXIOUS STIMULI. AFTER DECREASING PT GRIMACING DURING ORAL CARE. UNABLE TO FOLLOW COMMANDS OR OPEN EYES. SEE SHIFT ASSESSMENT. VENT SETTING OF AC 14/400/5/25%. VITAL HIGH PROTEIN AT RATE OF 15 ML/HR. TEMP SALDIVAR IN PLACE WITH DARK TEA COLORED URINE WITH SEDIMENTATION. SBP BETWEEN 180-200, DR. GOETZ AWARE AND NEW ORDERS RECIEVED TO CONTROL BP. PICC LINE TO RIGHT UPPER ARM, INFUSING WELL, DRESSING C/D/I. WILL CONTINUE TO MONITOR.
[2020-04-16 04:44] LABS: BASOPHILS ABSOLUTE AUTO 0.02 K/mm3 (0.00-0.23); BASOPHILS PERCENT AUTO 0 % (0-2); EOSINOPHILS ABSOLUTE AUTO 0.16 K/mm3 (0.00-0.68); EOSINOPHILS PERCENT AUTO 2 % (0-6); Hematocrit 32.6 % (33.0-51.0); Hemoglobin 10.2 g/dL (11.5-16.0); IMMATURE GRAN ABSOLUTE AUTO 0.18 K/mm3 (0.00-0.10); IMMATURE GRAN PERCENT AUTO 2 % (0-1); LYMPHOCYTES ABSOLUTE AUTO 1.09 K/mm3 (0.84-5.20); LYMPHOCYTES PERCENT AUTO 10 % (21-46); MONOCYTES ABSOLUTE AUTO 2.85 K/mm3 (0.16-1.47); MONOCYTES PERCENT AUTO 26 % (4-13); Mean Corpuscular HGB Conc 31.3 g/dL (31.5-36.5); Mean Corpuscular Volume 93 fL (80-100); Mean Platelet Volume 10.8 fL (9.1-12.4); NEUTROPHILS ABSOLUTE AUTO 6.67 K/mm3 (1.96-9.15); NEUTROPHILS PERCENT AUTO 61 % (41-73); Platelet Count 147 K/mm3 (150-400); RDW Coefficient Variation 13.7 % (11.7-14.2); RDW Standard Deviation 46.6 fL (35.1-46.3); Red Blood Cell Count 3.52 M/mm3 (3.80-5.20); White Blood Cell Count 10.97 K/mm3 (4.00-11.30)
[2020-04-16 05:07] LABS: Bun/Creatinine Ratio 9.3 (12.0-20.0); Calcium, Blood 7.7 mg/dL (8.5-10.1); Creatinine, Blood 1.29 mg/dL (0.40-1.00); Magnesium, Blood 1.5 mg/dL (1.6-2.4); Potassium, Blood 3.1 mmol/L (3.5-5.5)
--- NOTE | 2020-04-16 05:51 | NUR ---
SBT 0515 TO 0545 SEDATION VACATION AND SBT STARTED. PROPOFOL CHANGED TO STANDBY FOR 30 MINUTES. PT WAS UNABLE TO FOLLOW COMMANDS, MOVED RIGHT FOOT OFTEN BUT UNABLE TO MOVE LEFT FOOT OR SQUEEZE HANDS. NODDED HEAD "YES" ONCE AT THE END OF SEDATION VACATION. PTS EYES OPEN BUT NOT TRACKING. PT ON PS 7, PEEP OF 5, FIO2 25%. RR INCREASED TO 30-35, TIDAL VOLUME OF 350-435, AND HR 60-71. PTS BP INCREASED TO 211/75 AND PT GRIMACING AT TIMES. PER RT, PT PASSED SBT.
--- NOTE | 2020-04-16 06:05 | NUR ---
SHIFT SUMMARY PT INTUBATED AND SEDATED. PROPOFOL AT 25 MCG/KG/MIN. VENT SETTING OF AC 14/400/5/25% , SPO2 > 95%. AFTER SEDATION RESTARTED PT ONLY RESPONDING TO NOXIOUS STIMULI, SEE SBT NOTE. PT UNABLE TO FOLLOW COMMANDS AND DOES NOT OPEN EYES. OCCASIONAL GRIMACE DURING ORAL CARE/TURNS. OG TUBE IN PLACE WITH VITAL HIGH PROTEIN AT RATE OF 30 ML/HR, GOAL OF 45 ML/HR NOT MET. RESIDUAL OF 10 MLS REINSTILLED. EDEMA CONTINES ON UPPER AND LOWER EXTREMS, ELEVATED ON PILLOWS. TEMP SALDIVAR IN PLACE (T-MAX 99.0), DARK TEA COLORED CLOUDY URINE OUTPUT OF 500 MLS DURING SHIFT. PT REMAINS FREE OF SEIZURE ACTIVITY. PTS SBP 160-210'S T/O TREATED PER EMAR. PT REMAINS NSR. WILL REPORT TO ONCOMING SHIFT.
--- NOTE | 2020-04-16 07:00 | NUR ---
REPORT FROM JEEVAN, ASSUMING PT CARE. PT INTUBATED & SEDATED. VENT SETTINGS 14/400/5/25%. PROPOFOL @ 25mcg/kg/hr. PT RESPONDS TO PAINFUL STIMULI, UNABLE TO FOLLOW COMMANDS. PUPILS 2MM. +GAG,+SWALLOW, +COUGH. OG TUBE IN PLACE & INF VHP @ 30ml/hr W/ 30ml FLUSH Q4. NO RESIDUALS THIS AM. ABD SOFT, ROUND, BT HYPOACTIVE. SCANT, THIN, WHITE/CLEAR, SECRETIONS THROUGH ETT. LS CLEAR THROUGHOUT. SALDIVAR IN PLACE & DRAINING CLOUDY/YELLOW URINE TO GRAVITY. PICC TO RUE. DRESSING C/D/I. VS STABLE. WILL CONTINUE TO MONITOR.
[2020-04-16 09:04] LABS: Vancomycin, Trough 15.3 ug/mL (5.0-10.0)
--- NOTE | 2020-04-16 14:20 | NUR ---
SEDATION VACATION PROPOFOL ON STANDBY SINCE APPROX 0920. PT ABLE TO OPEN EYES ON COMMAND AND OPEN MOUTH. PT EXTREMELY WEAK. UNABLE TO INTERNATIONAL TRADE TEACHER HANDS OR RAISE ARMS. NODS HEAD TO YES/NO QUESTIONS. COUGH/GAG/SWALLOW REFLEX PRESENT. PT ON SPONT VENT SETTINGS c PS 5/30%. TOLERATED WELL. PLAN TO REASSESS FOR EXTUBATION TOMOROW. DR POSADA PLACED PT ON AC 14/400/5/30%. PER DR POSADA, USE PROPOFOL AND FENTANYL FOR SEDATION IF NEEDED. PROPOFOL ON STANDBY. WILL CONTINUE TO MONITOR.
--- NOTE | 2020-04-16 17:37 | NUR ---
SHIFT SUMMARY: PT INTUBATED & SEDATED. VENT SETTINGS AC 14/400 5/30%. PROPOFOL GTT @ 15mcg/kg/min. PT ABLE TO FOLLOW SIMPLE COMMANDS. SEE SEDATION VACATION NOTE. LS UNCHANGED. TUBE FEEDINGS INC TO 45ml/hr. SALDIVAR PATENT & DRAINING TO GRAVITY W/ 1700cc NU/CLOUDY OUTPUT. LOVENOX GIVEN FOR DVT PROPHYLAXIS. PT HAD EPISODES OF HTN TODAY, CLONIDINE INC TO 0.2mg TID. HTN RESOLVED. POSSIBLE EXTUBATION TOMORROW. WILL CONTINUE TO MONITOR UNTIL REPORT GIVEN TO ONCOMING RN.
--- NOTE | 2020-04-16 20:28 | NUR ---
CARE ASSUMED 1900 PT INTUBATED AND SEDATED. PROPOFOL AT 15 MCG/KG/MIN. VENT SETTINGS OF AC 14/400/5/30%, SPO2 100%. PT UNABLE TO FOLLOW COMMANDS OR OPEN EYES, SLIGHT GRIMACE DURING ORAL CARE. VSS, SINUS LEONARD, TEMP OF 98.4. VITAL HIGH PROTEIN VIA OG TUBE, 0 RESIDUAL, BOWEL TONES ACTIVE. TEMP SALDIVAR IN PLACE WITH DARK NU CLOUDY SEDIMENT 10 MLS OF URINE IN BAG. RESTRAINTS REMOVED DUE TO PT NOT MOVING UPPER EXTREMS/WEAKNESS. PT MOVES RIGHT LOWER LEG OCCASIONALLY. PICC TO RIGHT UPPER ARM, INFUSING WELL. WILL CONTINUE TO MONITOR.
[2020-04-17 04:33] LABS: BASOPHILS ABSOLUTE AUTO 0.02 K/mm3 (0.00-0.23); BASOPHILS PERCENT AUTO 0 % (0-2); EOSINOPHILS PERCENT AUTO 3 % (0-6); Hematocrit 31.4 % (33.0-51.0); Hemoglobin 9.9 g/dL (11.5-16.0); IMMATURE GRAN PERCENT AUTO 4 % (0-1); LYMPHOCYTES ABSOLUTE AUTO 1.08 K/mm3 (0.84-5.20); LYMPHOCYTES PERCENT AUTO 9 % (21-46); MONOCYTES ABSOLUTE AUTO 3.14 K/mm3 (0.16-1.47); MONOCYTES PERCENT AUTO 27 % (4-13); Mean Corpuscular HGB 29.6 pg (26.0-34.0); Mean Corpuscular HGB Conc 31.5 g/dL (31.5-36.5); Mean Corpuscular Volume 94 fL (80-100); Mean Platelet Volume 10.7 fL (9.1-12.4); NEUTROPHILS ABSOLUTE AUTO 6.79 K/mm3 (1.96-9.15); NEUTROPHILS PERCENT AUTO 58 % (41-73); Platelet Count 145 K/mm3 (150-400); RDW Coefficient Variation 14.2 % (11.7-14.2); RDW Standard Deviation 48.4 fL (35.1-46.3); Red Blood Cell Count 3.35 M/mm3 (3.80-5.20); White Blood Cell Count 11.83 K/mm3 (4.00-11.30)
[2020-04-17 04:51] LABS: Bun/Creatinine Ratio 12.2 (12.0-20.0); Calcium, Blood 7.2 mg/dL (8.5-10.1); Creatinine, Blood 1.64 mg/dL (0.40-1.00); Magnesium, Blood 1.6 mg/dL (1.6-2.4); Phosphorus, Blood 3.3 mg/dL (2.5-4.9); Potassium, Blood 3.6 mmol/L (3.5-5.5)
--- NOTE | 2020-04-17 06:07 | NUR ---
SBT AND SEDATION VACATION PROPOFOL ON STANDBY. VENT SETTINGS CHANGED TO PS OF 5, PEEP OF 5, FIO2 30%. PTS SPO2 96%, RR 21-30, TIDAL VOLUMES 350- 700'S. AND BP INCREASED FROM 140'S TO 150'S. PT ABLE TO FOLLOW COMMANDS DURING SEDATION VACATION. MOVES RIGHT FOOT/LEG, ABLE TO SQUEEZE RIGHT HAND, AND NODS "YES" TO BEING IN PAIN. PT NOT TRACKING WITH EYES AND UNABLE TO MOVE LEFT FOOT OR ARM. SEDATION RESTARTED.
--- NOTE | 2020-04-17 06:17 | NUR ---
SHIFT SUMMARY PT INTUBATED AND SEDATED. PROPOFOL AT 15 MCG/KG/MIN. VENT SETTINGS OF AC 14/400/5/30%, SPO2 98%. AFTER RESEDATION PT ONLY RESPONDS TO NOXIOUS STIMULI, SEE SEDATION VACATION AND NEURO ASSESSMENT. VITAL HIGH PROTEIN AT GOAL OF 45 ML/HR WITH 20 ML RESIDUAL REINSTILLED. TEMP SALDIVAR IN PLACE (98.8), DRAINING TO GRAVITY. URINE OUTPUT OF 200 MLS DURING SHIFT. URINE CONTINUES TO BE TEA COLORED WITH SEDIMENTATION. PICC TO RIGHT UPPER ARM, INFUSING WELL. WILL REPORT TO ONCOMING SHIFT.
--- NOTE | 2020-04-17 07:00 | NUR ---
ASSUMED CARE FROM SUNNY CHEW. PT INTUBATED & SEDATED. VENT SETTINGS SPONTANEOUS, 5/30% PS8. PT TOLERATING WELL. RESPONDS TO PAINFUL STIMULI. OCCASSIONALLY BITING @ ETT. PROPOFOL GTT @ 15mcg/kg/min. LS CLEAR THROUGHOUT. ABD SOFT. BT HYPERACTIVE. TUBE FEEDING @ GOAL OF 45mls/hr W/ NO RESIDUAL. SALDIVAR PATENT & DRAINING TO GRAVITY W/ YELLOW OUTPUT. VS STABLE. WILL CONTINUE TO MONITOR.
[2020-04-17 16:39] LABS: Automated CSF WBC Count 0.004 K/mm3 (0-5); WBC Count, CSF 4 /mm3 (0-5)
[2020-04-17 17:02] LABS: RBC Count, CSF 2 /mm3 (0-0)
[2020-04-17 17:03] LABS: Appearance, CSF Clear (Clear); Color, CSF No Color (No Color); Glucose, CSF 77 mg/dL (40-70)
[2020-04-17 17:08] LABS: Lymphocytes, CSF 76 % (40-80); Monocytes, CSF 22 % (15-45); Neutrophils, CSF 2 % (0-6)
[2020-04-17 18:06] LABS: Cryptococcus Neoformans/Gattii Not Detected (NOT DETECT); Enterovirus Not Detected (NOT DETECT); Escherichia Coli K1 Not Detected (NOT DETECT); Haemophilus Influenza Not Detected (NOT DETECT); Herpes Simplex Virus 1 Not Detected (NOT DETECT); Herpes Simplex Virus 2 Not Detected (NOT DETECT); Human Herpesvirus 6 Not Detected (NOT DETECT); Human Parechovirus Not Detected (NOT DETECT); Listeria Monocytogenes Not Detected (NOT DETECT); Neisseria Meningitidis Not Detected (NOT DETECT); Streptococcus Agalactiae Not Detected (NOT DETECT); Streptococcus Pneumoniae Not Detected (NOT DETECT); Varicella Zoster Virus Not Detected (NOT DETECT)
--- NOTE | 2020-04-17 18:26 | NUR ---
SHIFT SUMMARY. PT REMAINS INTUBATED & SEDATED. PROPOFOL GTT @ 15mcg/kg/min. VENT SETTINGS AC 14/400 5/30%. PT GRIMACES TO PAINFUL STIMULI. PT ABLE TO FOLLOW COMMANDS DURING SEDATION VACATION. PT ON SPONTANEOUS FOR SEVERAL HRS THIS SHIFT, TOLERATED WELL. LP COMPLETED THIS SHIFT. TUBE FEEDS CONTINUE. VS STABLE. ANTICIPATE EXTUBATION TOMORROW. PER DR POSADA, LIGHT SEDATION IF PT TOLERATES UNTIL EXTUBATION. WILL CONTINUE TO MONITOR UNTIL REPORT OFF TO ONCOMING RN.
--- NOTE | 2020-04-17 20:16 | NUR ---
CARE ASSUMED 1900 PT INTUBATED AND SEDATED. PROPOFOL AT 25 MCG/KG/MIN AND VENT SETTING OF AC 14/400/5/30%. LUNG SOUNDS CLEAR AND DIM WITH SCANT WHITE SECRETION'S. PT RESPONDS TO NOXIOUS STIMULI AND SLIGHT GRIMACE DURING ORAL CARE. DOES NO OPEN EYES. OG TUBE IN PLACE WITH VITAL HIGH AT GOAL OF 45 ML/HR, BOWEL TONES HYPERACTIVE AND NO RESIDUAL. TEMP SALDIVAR IN PLACE (97.9), DRAINING TO GRAVITY WITH YELLOW CLOUDY SEDIMENTED URINE. SWB. SPOKE TO DR. POSADA IN REGARDS TO STARTING PT ON NYSTATIN POWDER FOR REDNESS UNDER BREAST FOLDS AND PANNUS, ORDERS RECIVERED. WILL CONTINUE TO MONITOR.
[2020-04-18 04:12] LABS: BASOPHILS ABSOLUTE AUTO 0.01 K/mm3 (0.00-0.23); BASOPHILS PERCENT AUTO 0 % (0-2); EOSINOPHILS ABSOLUTE AUTO 0.27 K/mm3 (0.00-0.68); EOSINOPHILS PERCENT AUTO 3 % (0-6); Hematocrit 29.2 % (33.0-51.0); Hemoglobin 9.2 g/dL (11.5-16.0); IMMATURE GRAN ABSOLUTE AUTO 0.27 K/mm3 (0.00-0.10); IMMATURE GRAN PERCENT AUTO 3 % (0-1); LYMPHOCYTES ABSOLUTE AUTO 0.99 K/mm3 (0.84-5.20); LYMPHOCYTES PERCENT AUTO 11 % (21-46); MONOCYTES ABSOLUTE AUTO 1.95 K/mm3 (0.16-1.47); MONOCYTES PERCENT AUTO 23 % (4-13); Mean Corpuscular HGB 30.1 pg (26.0-34.0); Mean Corpuscular HGB Conc 31.5 g/dL (31.5-36.5); Mean Corpuscular Volume 95 fL (80-100); Mean Platelet Volume 10.7 fL (9.1-12.4); NEUTROPHILS ABSOLUTE AUTO 5.19 K/mm3 (1.96-9.15); NEUTROPHILS PERCENT AUTO 60 % (41-73); Platelet Count 133 K/mm3 (150-400); RDW Coefficient Variation 14.5 % (11.7-14.2); RDW Standard Deviation 50.6 fL (35.1-46.3); Red Blood Cell Count 3.06 M/mm3 (3.80-5.20); White Blood Cell Count 8.68 K/mm3 (4.00-11.30)
[2020-04-18 04:45] LABS: Bun/Creatinine Ratio 13.1 (12.0-20.0); Calcium, Blood 7.1 mg/dL (8.5-10.1); Creatinine, Blood 1.98 mg/dL (0.40-1.00); Magnesium, Blood 1.5 mg/dL (1.6-2.4); Phosphorus, Blood 4.2 mg/dL (2.5-4.9); Potassium, Blood 3.5 mmol/L (3.5-5.5)
--- NOTE | 2020-04-18 05:57 | NUR ---
SBT PROPOFOL PLACED ON STANDBY AT 0430 AND SBT STARTED AT 0440 WITH VENT SETTINGS OF PS 5, PEEP 5, FIO2 30%. TIDAL VOLUME BETWEEN [phone] AND RR 16- 23. PT ABLE TO OPEN EYES AND FOLLOW SIMPLE COMMANDS. PT CONTINUES TO SQUEEZE ONLY THE RIGHT HAND AND MOVE THE RIGHT FOOT. PT NODS "YES" TO HAVING NECK PAIN. PT ABLE TO TRACK WITH EYES. PULLING AT RIGHT RESTRAINT. PT WAS NOT ABLE TO TOLERATE BEING LEFT ON PS DUE TO INCREASED BP AND GRIMACING, TREATED PER EMAR. PTS HR BETWEEN 64-70, SBP 163-187/ DBP 70-106, SPO2 > 97%. PLACED BACK ON PROPOFOL AT 25 MCG/KG/MIN.
--- NOTE | 2020-04-18 06:17 | NUR ---
SHIFT SUMMARY PT INTUBATED AND SEDATED. PROPOFOL AT 25 MCG/KG/MIN AND VENT SETTING OF AC 14/400/5/30%. PT PASSED SBT PER RT, SEE SBT NOTE. PT ABLE TO FOLLOW COMMANDS DURING SEDATION VACATION, NODDED "YES" TO HAVING NECK PAIN BUT "NO" TO ALL OTHER FORMS OF PAIN. UPDATED PT ON BEING IN ICU AND POSSIBILITY OF EXTUBATION TODAY, TEARS IN PT EYES. PT CONTINUES TO ONLY MOVE RIGHT ARM AND RIGHT FOOT. ABLE TO TRACK DURING SEDATION VACATION. PLACED BACK ON PROPOFOL DUE TO BP BECOMING ELEVATED, 189/76 AND HR 68. TREATED PER EMAR. LUNG SOUNDS COARSE/CLEAR T/O SHIFT AND DIM IN BASES. OG TUBE IN PLACE WITH VITAL HIGH PROTEIN AT GOAL OF 45 ML/HR, RESIDUAL OF 20 MLS AND BOWEL TONES HYPERACTIVE. NO BM DURING SHIFT. TEMP SALDIVAR IN PLACE (T-MAX 98.4), URINE OUTPUT OF 700, LIGHT YELLOW CLOUDY WITH SEDIMENTATION. SWB IN PLACE. VSS T/O, NSR TO SINUS BRADYCARDIA T/O SHIFT. WILL REPORT TO ONCOMING SHIFT.
--- NOTE | 2020-04-18 07:30 | NUR ---
ASSUMED CARE OF PT AT 0700. BEDSIDE REPORT FROM JEEVAN CORREA. PT INTUBATED AND SEDATED. VENT SETTINGS AC 14/400/5/30%. PROPOFOL GTT AT 20 MCG/KG/MIN. PT RESPONSES TO PAINFUL STIMULI. LUNGS DIMINISHED IN BASES. SCANT AMOUNT OF THIN WHITE SECRETIONS THROUGH ETT. ABD ROUND, SOFT, NON TENDER. BT X 4. TUBE FEEDS AT GOAL OF 45 ML/HR c 30 ML FLUSHES q4 HR. NO RESIDUALS THIS AM. PT c LOOSE BROWN STOOL. CLEANED AND LINENS CHANGED. PT c REDNESS TO COCCXY, NO BREAKDOWN NOTED. MEIPLEX CHANGED. REDNESS TO SKIN FOLDS TO BREAST AND PANNUS. SALDIVAR IN PLACE, DRAINING CLOUDY YELLOW URINE TO GRAVITY. PICC TO [facility], DRESSING C/D/I. VSS. PER DAMARI CHEW DRAW COMPLETED EARLY, RESULTED AND DISCUSSED glenda GARCIA IN PHARMACY. REPEAT MARKO AT 0800, CRITICAL HIGH, DISCUSSED DAMARI Nguyen HELD. WILL CONTINUE TO MONITOR.
[2020-04-18 08:45] LABS: Vancomycin, Trough 25.8 ug/mL (5.0-10.0)
--- NOTE | 2020-04-18 12:03 | NUR ---
pt extubated to 3l via n/c sat is 98% rn at bedside
--- NOTE | 2020-04-18 12:30 | NUR ---
EXTUBATION PROPOFOL PLACED ON STANDBY, PT TOLERATING SPONT MODE WELL. MINIMAL SECRETIONS THROUGH ETT. PT ABLE TO FOLLOW DIRECTIONS. COUGH/GAG/SWALLOW REFLEX PRESENT. PT EXTUBATED AT 1156. PLACED ON 3L VIA NC. O2 SATS >95%. PT c WEAK VOICE AND COUGH. ENCOURAGED COUGH. PT ORIENTED TO SELF AND PLACE. RESTRAINTS REMOVED AT EXTUBATION. WILL CONTINUE TO MONITOR.
--- NOTE | 2020-04-18 17:36 | NUR ---
SHIFT SUMMARY PT EXTUBATED THIS SHIFT, SEE NOTE. CONTINUES ON 3L VIA NC. PT CONTINUES TO HAVE WEAK VOICE AND COUGH. GARBLED SPEECH, DIFFICULT TO UNDERSTAND. ORIENTED TO SELF, PLACE, DOES NOT KNOW YEAR. IRRITABLE c TURNS. LUNGS COARSE THROUGHOUT. ENCOURAGED COUGH. ASSIST c CLEARING OF SECRETIONS c SUCTIONING. PT APPEARS TO SWALLOW MOST SECRETIONS. SWALLOW EVAL ORDERED, SPEECH WILL ATTEMPT TOMORROW. POSSIBLE DOBHOFF PLACEMENT FOR MEDS PENDING RESULTS OF EVAL. PICC PULLED TO [address] GOETZ, DRESSING C/D/I. SALDIVAR PATENT AND DRAINING TO GRAVITY. 1200 ML CLOUDY YELLOW URINE THIS SHIFT. 2 LOOSE BMS THIS SHIFT. VSS. WILL CONTINUE TO MONITOR UNTIL REPORT TO ONCOMING NURSE.
--- NOTE | 2020-04-18 19:30 | NUR ---
SHIFT ASSESSMENT ASSUMED CARE @ 1900 FROM SUNNY BEYER. PT ALERT TO PERSON AND PLACE. VERY HARD TO UNDERSTAND, VOICE IS HARSH AND RASPY. PT HAS A WEAK COUGH, COACHED THROUGH TAKING SOME DEEP BREATHS AND COUGHING HARD. COUGHING UP SMALL AMOUNTS OF SPUTUM, ATTEMPT TO SUCTION BUT PT FIGHTS THE SUCTION AND SWALLOWS SPUTUM. LS COARSE T/O. ON 3LPM O2 VIA NC c O2 SATS >95%. ABD SOFT, NON-TENDER. SALDIVAR CATH PATENT, DRAINING YELLOW URINE. WILL CONTINUE TO MONITOR.
--- NOTE | 2020-04-19 02:23 | NUR ---
UPDATE PT IS REGAINING HER ABILITY TO SPEAK CLEARLY. WHILE PERFORMING ADL'S, PT REFERRED TO ME HER SON. BELIEVES SOMEONE ELSE IS IN THE ROOM AND THAT THEY TOOK HER MEDICATIONS.
[2020-04-19 03:30] LABS: BASOPHILS ABSOLUTE AUTO 0.03 K/mm3 (0.00-0.23); BASOPHILS PERCENT AUTO 0 % (0-2); EOSINOPHILS PERCENT AUTO 3 % (0-6); Hematocrit 31.8 % (33.0-51.0); Hemoglobin 9.9 g/dL (11.5-16.0); IMMATURE GRAN ABSOLUTE AUTO 0.47 K/mm3 (0.00-0.10); IMMATURE GRAN PERCENT AUTO 4 % (0-1); LYMPHOCYTES ABSOLUTE AUTO 0.92 K/mm3 (0.84-5.20); LYMPHOCYTES PERCENT AUTO 9 % (21-46); MONOCYTES ABSOLUTE AUTO 2.94 K/mm3 (0.16-1.47); MONOCYTES PERCENT AUTO 27 % (4-13); Mean Corpuscular HGB 29.6 pg (26.0-34.0); Mean Corpuscular HGB Conc 31.1 g/dL (31.5-36.5); Mean Corpuscular Volume 95 fL (80-100); Mean Platelet Volume 10.5 fL (9.1-12.4); NEUTROPHILS ABSOLUTE AUTO 6.15 K/mm3 (1.96-9.15); NEUTROPHILS PERCENT AUTO 57 % (41-73); Platelet Count 172 K/mm3 (150-400); RDW Coefficient Variation 14.6 % (11.7-14.2); RDW Standard Deviation 50.5 fL (35.1-46.3); Red Blood Cell Count 3.34 M/mm3 (3.80-5.20); White Blood Cell Count 10.81 K/mm3 (4.00-11.30)
[2020-04-19 03:46] LABS: Bun/Creatinine Ratio 13.3 (12.0-20.0); Calcium, Blood 7.4 mg/dL (8.5-10.1); Creatinine, Blood 1.73 mg/dL (0.40-1.00); Magnesium, Blood 1.8 mg/dL (1.6-2.4); Potassium, Blood 3.4 mmol/L (3.5-5.5)
[2020-04-19 04:37] LABS: Phosphorus, Blood 2.8 mg/dL (2.5-4.9)
--- NOTE | 2020-04-19 06:10 | NUR ---
SHIFT SUMMARY PT ALERT TO PERSON AND PLACE. HAS INTERMITTENT BOUTS OF CONFUSION/ VISUAL HALLUCINATIONS. REMAINS ON AIRVO WITH THE SAME SETTINGS, O2 SATS >90%. NSR/ SINUS LEONARD. RESTRAINTS REMAIN IN PLACE DUE TO THE INTERMITTENT BOUTS OF CONFUSION, PT WILL PULL OFF AIRVO. BP STABLE. SALDIVAR CATH PATENT, DRAINING YELLOW URINE c 1850ML OUT THIS AM. WILL CONTINUE TO MONITOR.
--- NOTE | 2020-04-19 06:19 | NUR ---
SHIFT SUMMARY PT REMAINS ALERT TO PERSON, THINKS SHE IS AT [facility]. LS CLEARER THIS AM , PT ABLE TO COUGH UP SMALL AMOUNTS OF SPUTUM BUT CONTINUES TO BE HESITANT TO USE THE SUCTION. CONTINUES TO BE ON 3LPM O2 VIA NC c SATS >95%. HAD TWO LOOSE BM'S THIS AM. SALDIVAR CATH DRAINING YELLOW URINE. PT HYPERTENSIVE, MEDICATED c PRN ANTIHYPERTENSIVES. REPORT TO ONCOMING NURSE.
--- NOTE | 2020-04-19 09:31 | NUR ---
SEE PAPER CHARTING FOR DOWN TIME CHARTING.
--- NOTE | 2020-04-19 10:30 | NUR ---
AWAKE AND ATTEMPTS TO FOLLOW COMMANDS, APPEARS TO ATTEMPT TO LIFT RIGHT ARM FROM BED WHEN ASKED, LIFTS MINIMAL FROM MATTRESS. SPEECH THERAPY WITH PT FOR EVAL. REPONDS YES WHEN ASKED IF THIRSTY BY SPEECH THERAPIST. REPOSITIONED WITH MAX ASSIST. MEDICATED FOR PAIN AND BLOOD PRESSURE PER ORDERS, WILL CONTINUE TO MONITOR.
--- NOTE | 2020-04-19 16:34 | NUR ---
PT ARRIVED IN THE UNIT FROM ICU REPORT RECEIVED FROM WILY CORREA. PT IS HERE DUE TO SEIZURE EPISODES, VITAL HRR SINUS 70'S, BP SYSTOLIC 170'S, SATS ABOVE 90% ON3L OF O2, AFEBRILE. PT APPEARS LETHARGIC VERBALLY RESPONSIVE OPENS EYES SPONTAENOUSLY, EASILY FALLS ASLEEP. PT IS AT BEDREST 2 MAX ASSISTS, CURRENTLY NPO HAS AN ORDER FOR DOBHOFF WILL ATTEMPT PLACEMENT BEFORE END OF SHIFT, SPEECH EVAL FAILED TODAY. PT HAS PICCLINE ON CHERELLE NS RUNNING AT KVO, PT ON IV ABO. PT HAS REDNESS/IRRITAION ON GROIN, PANUS AND UNDER BREASTS. PT CURRENTLY IN BED RESTING CALL LIGHTS IN REACH, WILL MONITOR
--- NOTE | 2020-04-19 18:17 | NUR ---
ATTEMPTED DOBHOFF PLACEMENT WITH NO SUCCESS, WILL PASS ON TO AUTOMATED EQUIPMENT ENGINEER TECHNICIAN NURSE TO RE-ATTEMPT PLACEMENT.
[2020-04-20 06:32] LABS: Bun/Creatinine Ratio 13.8 (12.0-20.0); Calcium, Blood 7.4 mg/dL (8.5-10.1); Creatinine, Blood 1.38 mg/dL (0.40-1.00); Potassium, Blood 3.6 mmol/L (3.5-5.5)
--- NOTE | 2020-04-20 06:37 | NUR ---
SUMMARY PATIENT IS ALERT AND ORIENTED TO SELF, CAN NOT STATE DATE MONTH OR YEAR. PATIENT IS A MAXIMAL ASSIT TO REPOSITION IN BED Q2 HOURS. SHE IS INCONTINENT OF BOWEL AND BLADDER. PATIENT REFUSED DOBHOFF TUBE AND KEEPS INSISTING SHE CAN SWALLOW FOOD AND WATER, ORDERS STATE PATIENT IS NPO. MOUTH SWABS AND ORAL CARE PROVIDED, PATIENT KEEPS REQUESTING WATER, TEACHING PROVIDED ON WHY SHE IS NOT ABLE TO HAVE WATER AT THIS TIME. 02 SATS >90% ON 3L VIA NC. SUCTION PROVIDED AT BEDSIDE TO HELP PATIENT WITH SECRETIONS. PATIENT SLEPT MOST THE NIGHT. TWO EPISODES OF ST IN THE 140s, OTHERWISE VSS, NO ACUTE CHANGES. CALL LIGHT IN REACH, BED IN LOW POSITION.
--- NOTE | 2020-04-20 08:32 | NUR ---
ASSUME CARE: PT WAS SLEEPING DURING BEDSIDE REPORT, PT NOTED TO HAVE NEW ONSET OF LEFT SIDE WEAKNESS DURING THIS RN'S ASSESSMENT, PT WAS UNABLE TO SQUEEZE ON LEFT HAND, UNABLE TO MOVE LEFT ARM AND LEG, LEFT FACIAL DROOP TONGUE DEVIATED TO RIGHT, SLURRED SPEECH. PT HAS HX OF PE AND IS ON ELIQUIS 2.5MG BID BUT PT HAS NOT BEEN ABLE TO TAKE ANY PO MEDS SINCE PT HAS BEEN NPO AND FAILED SPEECH EVAL YESTERDAY, DOBHOFF ORDERED FOR PO MEDS AND PT REFUSES. BP SYSTOLIC HAS BEEN ELEVATED 140-180'S PT HAS CLONIDINE PATCH ON. DR DURON MADE AWARE ORDER FOR HEAD CT STAT WO CONTRAST, PALLITIVE CARE CONSULT PUT IN WELL. PT CURRENTLY DOING THE CT OF THIS TIME, WILL MONITOR PT
--- NOTE | 2020-04-20 09:38 | NUR ---
Received call from Bedside RN Mikel, discussed case and concerns. Pt appears to be declining further and is more lethargic. Pt refused to have dobhoff placement yesterday and awaiting ST evaluation. New symptoms of stroke has developed as evidenced by facial droop and deficits to one side. Pt taken for CT. Pt resting in bed upon arrival. Pt is A&OX3. Pt unable to remember or vervalize reason for hospital stay. Pt is orientated to self, place, and current year. Engaged in therapeutic conversation regarding plan of care and discussed POLST she completed in 2017 with her PCP at the time. Pt's wishes on POLST is DNR and Comfort Measures Only. Pt confirms these are still her wishes. Educated on comfort care philosophy with V/U made by Pt. Called and spoke with Pt's son Cam. Provided update and engaged in therapeutic discussion regarding goals of care. Discussed Pt's POLST and educated on comfort care philosophy. Discussed care teams intention to follow Pt's wishes and plan to place on comfort care. Cam is in disagreement and plans to come talk with Pt. Spoke with Dr Renteria and discussed case. Dr Renteria is in agreement to post pone orders for comfort measures for now. Palliative Care will remain available.
--- NOTE | 2020-04-20 11:52 | NUR ---
F/U visit today. Pt resting in bed upon arrival and son Cam at bedside. Dr Renteria arrives and provides update, discusses CT results, options for care, and the importance of considering Pt's wishes and POLST. Dr Renteria answers questions and provides education. This RN remained behind to offer support. Answered questions and ended visit to allow son to visit with Pt privately. Son will discuss further with Pt regarding her wishes. Son Cam is requesting a Auto Leasing Manager to visit. Spoke with Nursing Conduit Cleaner Karolina and relayed family's request. Auto Leasing Manager will be called in. Palliative Care will remain available.
--- NOTE | 2020-04-20 12:39 | NUR ---
Pastoral care visitation conducted. Pt's son was at bedside upon entering room. Pt was alert and communicated general despondency. Pt's son gave an overview as to the situation and noted that he is "not wanting mom to give up." Active listening was provided and the son continued to share his feelings regarding his mother's condition. The pt requested prayer which was provided along with a scripture reading for comfort. Pt was requesting warm milk at the outset which was communicated to the nurse. PC support will remain available prospectively.
--- NOTE | 2020-04-20 13:15 | NUR ---
F/U visit Pt's son Cam has requested for this RN to return. Cam reports Pt is wanting to drink some milk. Cam also states "I can't change her mind". Engaged in therapeutic discussion regarding Pt's goals of care. Re-enforced education regarding comfort care with V/U made by both Pt and Cam. Inquired reason for decision with Pt reporting she wants to focus on qulity of life and comfort. Continued therapeutic listening and answered questions. Spoke with Bedside RN Mikel and weekday babysitter Jazmin. Discussed case and plan. Called and spoke with Dr Renteria. Placed orders for comfort care, comfort care order set, D/C maintenance medications per V/O from Dr Renteria. Lasix, Keppra, and PRN Hydralazine continued for comfort. Palliative Care will remain available for symptom management and supportive visits.
--- NOTE | 2020-04-20 15:07 | NUR ---
PT TRANSITIONED TO COMFORT CARE, PT HAD NEW INFARCT PER CT ON THE FRONTAL AND OCCIPITAL. COMFORT CARE MEDS ORDERED. SON WAS IN TO VISIT PALLIATIVE CARE NURSE WAS ABLE TO HAVE DISCUSSION WITH THE SON AND DR DURON ABOUT PT'S WISHES, FINALLY THEN AGREED TO PROCEED WITH COMFORT CARE, PRODUCT DEVELOPMENT MANAGER WAS REQUESTED. PT REQUESTED WARM MILK WAS SLIGHTLY THICKENED FOR PT TO EASILY SWALLOW, PT STILL COUGHS BETWEEN SIP BUT STILL INSISTED TO PROCEED. PT REFUSED TO BE REPOSITIONED IN BED, ROXANOL GIVEN X1 FOR ABD PAIN. PT REMAINS ON 3L OF O2 VIA NASAL CANNULA FOR COMFORT. SON REMAINED AT BEDSIDE. WILL MONITOR UNTIL END OF SHIFT
--- NOTE | 2020-04-21 05:35 | NUR ---
SHIFT SUMMARY NO ACUTE CHANGES THIS SHIFT. PT CONTINUES TO BE ON COMFORT CARE. PT ALERT, ABLE TO STATE NAME AND DATE OF . ANSWERS SOME QUESTIONS APPROPRIATELY. DOES NOT USE CALL LIGHT, CALLS OUT FOR NEEDS. PT CALLED OUT FOR "CAM" HER SON, SEVERAL TIMES DURING SHIFT. REORIENTED PT THAT IT WAS MIDDLE OF NIGHT AND HE WAS PROBABLY SLEEPING. SP02>90% ON 3L NC. PT RESPIRATIONS 24. PT DENIED PAIN T/O SHIFT. SALDIVAR CATHETER DRAINING TO GRAVITY. PT ALLOWED REPOSITIONING ONE TIME AT BEGINNING OF SHIFT THEN DENIED MOVING FORWARD. BED IN LOWEST POSITION, WILL CONTINUE TO MONITOR.
--- NOTE | 2020-04-21 10:21 | NUR ---
Pal Care comfort care visit and case conference with pt's RN. Pt is asleep in bed with hob up and nasal canula O2 in place. She did not wake to voice or gentle touch. She has puffy edematous extremities x 4. No agitation, restlessness or distress noted while sleeping. No nonverbal indicators of pain noted. She appears very comfortable at this time. Discussed s/s and current medications given with pt's RN. No family at bedside. Pt familiar to me from visits earlier in the FALL. Pal Care will return and remain available as indicated/requested.
--- NOTE | 2020-04-21 11:55 | NUR ---
PT ALERT THIS AM, COMPLAINING OF RESTLESS LEGS AND CHRONIC BACK PAIN, PRN ROXONAL 10MG SL AND ATIVAN 1MG IV GIVEN. PT APPEARS TO BE SLEEPING AT THIS TIME WITH NO S/SX OF DISTRESS OR DISCOMFORT. PT'S SON, DHARMESH, HAS JUST ARRIVED, HAS BEEN UPDATED, AND AGREES WITH PLAN OF CARE.
--- NOTE | 2020-04-21 17:06 | NUR ---
PT A&OX2, TWO PERSON ASSIST. PT IS ON COMFORT CARE AND HAS DENIED REPOSITIONING. PT REPORTS BACK PAIN, HAS BEEN CONTROLLED WELL WITH PRESCRIBED MEDS. ORAL CARE WAS PERFORMED TODAY. PT'S SON CAM VISITED TODAY. CURRENTLY APPEARS COMFORTABLE. NO OTHER CHANGES OR CONCERNS.
--- NOTE | 2020-04-22 01:45 | NUR ---
REPORT RECEIVED FROM ENRIQUETAEARLY CHILDHOOD. PT TRANSFERRED TO MEDICAL FLOOR WITH COMFORT CARE STATUS. NO S/S ACUTE DISTRESS NOTED, RESPS E/U, ON 3L O2/NC. MEDICATED FOR PAIN WITH ROXANOL ORDERED. PT CALLED SON, SON TO ARRIVE TO SEE PT SHORTLY. BROUGHT ICE WATER. APPEARS COMFORTABLE AT THIS TIME. CALL LIGHT, POSSESSIONS IN REACH, BED IN LOW POSITION WITH ALARMS ON. [facility].
--- NOTE | 2020-04-22 03:52 | NUR ---
SHIFT SUMMARY PT ASLEEP AT THIS TIME, APPEARS COMFORTABLE AFTER VISIT WITH SON. RESPS EVEN AND UNLABORED. DENIES NEEDS. CALL LIGHT AND POSSESSIONS IN REACH, BED IN LOW POSITION WITH ALARMS ON. WCTM, REPORT OFF TO ONCOMING RN.
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
--- NOTE | 2020-04-22 14:33 | NUR ---
SON, CAM, STS IF PATIENT CAN PIVOT FROM BED TO W/C AND BACK HE MIGHT BE ABLE TO TAKE HER HOME. PER DR.HACK CHAIDEZ TO ORDER PT EVAL.
--- NOTE | 2020-04-22 17:37 | NUR ---
SLEEPING MOST OF SHIFT. REFUSES TO BE TURNED. ASSISTED WITH FOOD. [facility]
--- NOTE | 2020-04-22 17:39 | NUR ---
Spiritual care note: I met with son and pt at bedside. Neither engaged in conversation. Pt apeared quite weak and sleepy. Son, Vinod, looked tearful. He allowed me to bring him some coffee, but that was it. Affirmed obvious love and devotion. I will remain available.
--- NOTE | 2020-04-22 19:03 | NUR ---
PATIENT HAS CONTINOUSLY REFUSED CARE INCLUDING Q2 TURNS THROUGHOUT SHIFT. AT 1810 PATIENT REFUSED REPOSITIONING AND CHECKING ATTNDS, SUNNY FUNEZ PRESENT TO REFUSAL. NOTIFIED SUNNY FUNEZ EACH TIME PATIETN REFUSED CARE OF REPOSITIONING AND CHECKING ATTNDS.
--- NOTE | 2020-04-22 23:00 | NUR ---
COMFORT CARE MEASURES MAINTAINED; DENIES NEED FOR PAIN OR ANXIETY MEDS AT MOMENT; WEARING O2 AT 2L/M PER NASAL CANNULA; PT VOICED VERY LOUDLY SHE DOES NOT DESIRES TO BE TURNED AT THIS TIME.
--- NOTE | 2020-04-23 04:13 | NUR ---
SHIFT SUMMARY: 84 MORBID OBESE FEMALE ON COMFORT CARE MEASURES; DENIES PAIN OR NAUSEA; BED ALARM APPLIED, BED LOW POSITION WITH CALL LIGHT AT SIDE.
--- NOTE | 2020-04-23 16:22 | NUR ---
Pt just finishing up bed bath upon arrival. Assisted CNAs with repositioning. Pt appears painful and significantly anxious due to fear of pain prior to repositioning. Pt premidacted with Roxanol 30 minutes prior to personal care. Reasured Pt and offered therapeutic voice. Pt forgetful and keeps asking where her son Cam is. Pt appears to have relaxed after repositioning. Reviewed comfort medications. Pt may benefit from pre medicating with Ativan prior to personal care. Palliative Care will remain available for symptom management.
--- NOTE | 2020-04-23 17:00 | NUR ---
ALERT. HAS REFUSED BEING TURNED MULTIPLE TIMES. ABLE TO TURN PROBABLY 3 TIMES TODAY. GIVEN PAIN MEDS PRIOR TO BEDBATH, PATIENT ANXIOUS DURING PROCEDURE, SO WILL GIVE ANTIANXIETY MED NEXT TIME. AWAITING PLACEMENT. P.T. WAS IN TO EVAL. ANDRY
--- NOTE | 2020-04-24 04:38 | NUR ---
SLITTER SCORER CUT OFF OPERATOR SUMMARY Sheri refused repositioning, cath and personal care almost all night. Roxynol up to 20mg and medication for anxiety given language therapist in attempt to allow care. Patient calling out for son Thanh most of night. when reoriented to the time of night, she would relax somewhat in understanding that he will be back in AM. Minimal shifting of weight as repositioning. Green swabs for oral care.
[2020-04-24] MEDS ORDERED: CLOBETASOL PRO118 ML TOP (04:48)
--- NOTE | 2020-04-24 06:51 | NUR ---
PT HAS REFUSED Q2 TURNING AND ALLOWED NO ATTENDS CHANGES OR CATHETER CARE. PT STATES THAT SHE JUST WANTS TO BE LEFT ALONE SO SHE CAN GET SOME REST. NURSE AWARE OF REFUSALS.
--- NOTE | 2020-04-24 14:18 | NUR ---
SALDIVAR CATH CARE. INNER THIGHS EXCORIATED, RED, FLAKEY SKIN. NYSTATIN POWDER TO RED AREAS. ALOE VERA CREAM TO OTHER AREAS. TOLERATED WELL.
--- NOTE | 2020-04-24 18:22 | NUR ---
ALERT. ORIENTED. FORGETFUL. WAS ABLE TO TURN PATIENT TWICE TODAY. DOES BETTER IF ASSISTED WITH FOOD. WOULD NOT COOPERATE WITH P.T. ATTEMPT TO PLACE SLING UNDER PATIENT TO GET PATIENT INTO RECLINER, BUT PATIENT REFUSED. SON AWARE. WCTM
--- NOTE | 2020-04-25 02:04 | NUR ---
Patient continues to refuse personal care and most attempts to reposition. Have been trying Ativan to relax her as well as Roxynal for pain. Slight repositioning along with front kali care and cleansing of area between thighs that is peeling and painful looking. Dry soft cloths between thighs and under pannus and nystatin applied to all excoriated areas. Patient did sleep well between checks and attempts to reposition.
--- NOTE | 2020-04-25 02:13 | NUR ---
TUBE TURNER SUMMARY Patient slept well between attempts to reposition or perform personal care. She did allow us once to partially turn her and perform (Front only kali and skin care) after cleansing, nystatn powder was applied and dry soft cloths were applied to folds in kali area and under pannus. Patient appeared to be comfortable with alternating Ativan and Roxynol
--- NOTE | 2020-04-25 12:13 | NUR ---
PT CURRENTLY SLEEPING COMFORTABLY IN BED.
--- NOTE | 2020-04-25 12:15 | NUR ---
P.T. HELPED TO TURN PATIENT TO HER SIDE. SKIN CARE PROVIDED TO PATIENT WHILE SHE WAS ON HER SIDE. LOTION APPLIED. PT REFUSED BENGAY AND NYSTATIN POWDER EARLIER.
--- NOTE | 2020-04-25 15:13 | NUR ---
SON IN PT'S ROOM. PT DENIES ANY PAIN OR DISCOMFORT AT THIS TIME. REFUSES REPOSITIONING AND NYSTATIN POWDER. C/O ITCHING PERIODICALLY. REFUSED LUNCH EARLIER BUT IS NOW DRINKING ENSURE.
--- NOTE | 2020-04-25 17:19 | NUR ---
SHIFT SUMMARY PT BEEN RESTING FOR THE MAJORITY OF THE SHIFT. PT HAS REFUSED MOST REPOSITIONING AND PERSONAL CARE. SON AT BEDSIDE FOR THE MAJORITY OF THE SHIFT. PT MEDICATED PER EMR FOR PAIN. TRANSFERRED TO A ROOM WHERE A CEILING LIFT IS AVAILABLE. REPORT GIVEN TO ENRIQUETA ARAUZ RN.
--- NOTE | 2020-04-25 17:24 | NUR ---
PT TRANSFERRED TO LIFT ROOM. PT'S SON AT THE BEDSIDE.
--- NOTE | 2020-04-25 18:11 | NUR ---
PATIENT TRANSFERED TO ROOM 325 DUE TO NEED FOR LIFT ROOM. CLEANSED PATIENT UP IN HER ABDOMINAL AND GROIN FOLDS AND PLACED NYSTATIN POWDER TO ALL AREAS. PICC LINE DRESSING CHANGED AND MEASURES 6CM FROM INSERTION SITE. NOTIFIED IRAJ, AUTO BRAKE TECHNICIAN, IT STATES AT INSERTION IT MEASURED 2CM. IRAJ ADVISED THAT i CHECK FOR BLOOD RETURN TO WHICH I WAS EASILY ABLE TO GET 10CC OF BLOOD. IRAJ STATED SHE FELT GOOD WITH IT HAVING GREAT BLOOD RETURN. PATIENT IS NOW ALL SITUATED AND SLEEPING INHER ROOM.
--- NOTE | 2020-04-26 02:00 | NUR ---
REASSURANCE AND REPOSITIONING FOR COMFORT.
--- NOTE | 2020-04-26 05:34 | NUR ---
PATIENT SLEPT MOST OF THE NIGHT. AT 0500 PATIENT WAS REPOSITIONED AND CLEAN LINEN PLACED UNDER PATIENT. THE OVERHEAD LIFT USED FOR REPOSITIONING. SKIN CARE DONE, KAROL CARE AND CATH CARE. PATIENT IS VERY TALKATIVE AND ENGAGING. CALL LIGHT IN REACH WITH SOFT MUSIC PLAYING.
--- NOTE | 2020-04-26 15:21 | NUR ---
PATIENT HAS HAD A GOOD SHIFT WITH NO COMPLAINTS OF PAIN UNLESS BEING REPOSITIONED IN BED. EATS MINAMALLY WITH ASSIST. ABLE TO RESPOND APPROPRIATELY TO STAFF QUESTIONS. SALDIVAR CATH IS PATENT AND DRAINING TO GRAVITY. COMPLAINED OF ITCHING ONE TIME THIS MORNING AND ADMINISTERED SOME VISTERIL WITH EFFECTIVENESS. BED BATH GIVEN. PATIENT IS CURRENTLY IN ROOM WITH SON AT BEDSIDE. WILL CONTINUE TO MONITOR AND PROVIDE CARE NEEDED.
--- NOTE | 2020-04-27 06:13 | NUR ---
SHIFT SUMMARY LYING IN SEMI FOWLERS WITH EYES OPEN, HAS RESTED WELL, IS A COMFORT CARE PT. NO ACUTE CHANGES NOTED THROUGHOUT SHIFT. ABLE TO REPOSITION HERSELF IN THE BED BUT NEEDS LIFT SHEET ADJUSTED D/T WRINKLES. DENIES PAIN, DISCOMFORT, OR FURTHER NEEDS AT THIS ITME. SAFETY MEASURES IN PLACE. WILL CONTINUE TO MONITOR AND GIVE HAND OFF TO ONCOMING SHIFT USING SBAR.
--- NOTE | 2020-04-27 15:34 | NUR ---
Supportive Comfort Care visit made. Son at bedside. Pt roused and greeted me, introduced herself but slipped in and out of sleeping t/o my visit. She appears very comfortable at this time and when asked if she is hurting did not answer but closed her eyes rested again. She stated, "I hope it won't be long now". I spoke to both pt, while awake and son for about 10 minutes. Son did not identify any needs at this time. Pt appears to be comforted by having him at the bedside and she is very calm today also.
--- NOTE | 2020-04-27 15:48 | NUR ---
PATIENT HAS BEEN A BIT MORE PAINFUL AND VERBAL TODAY THAN YESTERDAY. MEDICATED A COUPLE OF TIMES WITH MODERATE RESULTS. DR TY PLACED A NEW ORDER FOR A FENTANYL PATCH TO BE PLACED TO HELP WITH PAIN MANAGEMENT. PATCH PLACED TO L SHOULDER. PATIENT COMPLAINS OF ITCHING TO HER BACK OCCASIONALLY AND VISTERAL WAS ADMINISTERED TWICE THIS SHIFT; IT DOES APPEAR TO BE EFFECTIVE. CLEANSED THE PATIENTS KAROL-AREA, ABDOMINAL FOLDS AND BENEATH BREAST THOROUGHLY TWICE THIS SHIFT AND APPLIED SCHEDULED NYSTATIN POWDER. RASH HAS IMPROVED TREMENDOUSLY SINCE YESTERDAY AND SHOULD CONTINUE TO IMPROVE WITH CONTINUED TREATMENT PER EMAR. PATIENT IS NOW ASLEEP IN HER BED. Q 2HR TURNS AND COMFORT CARE PROTOCOL FOLLOWED. SON IS VISITING AT BEDSIDE AT THIS TIME. WILL CONTINUE TO MONITOR AND PROVICE CARE NEEDED.
--- NOTE | 2020-04-28 06:09 | NUR ---
SUMMARY PT HAS REMAINED COMFORTABLE. PT DID C/O ITCHINESS AND TX PER EMAR. PT HAS SLEPT T/O SHIFT. PT CURRENTLY SLEEPING ANND APPEARS COMFORTABLE.
--- NOTE | 2020-04-28 14:35 | NUR ---
Pt resting in bed with her eyes closed upon arrival. No family present at time of visit. Pt awakes to gentle verbal stimuli. Pt's skin appears pale today. Pt reports pain in her lower abdomen but does not verbalize rating on pain scale. 3/10 flacc scale noted. Assisted Pt with sips of water per her request. Pt requests pain medication. No other concerns reported at this time. Spoke with Bedside RN Miguelina, discussed case and relayed Pt's pain. Miguelina will offer pain medications. Palliative Care will remain available.
--- NOTE | 2020-04-28 17:08 | NUR ---
SHIFT SUMMARY- PT IS PLESANT. SHE HAS SLEPT FOR MOST OF THIS SHIFT. HER SON WAS AT BEDSIDE THIS AFTERNOON. SHE WAS VISITED BY SPIRITUAL CARE AND PALATIVE CARE TODAY. PT DID NOT WANT TO GO TO A NURSING FACILITY BUT AFTER DISCUSSION WITH THE FOAM RU[employer]ER CURER SHE AGREED TO GO TO [facility]. SHE HAS A SALDIVAR IN PLACE AND IT IS PAITIENT AND DRAINING WELL. HER BED IS IN THE LOW POSITION AND CALL LIGHT WITHIN REACH.
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
--- NOTE | 2020-04-29 06:16 | NUR ---
SHIFT SUMMARY: COMFORT CARE. PT SLEPT INTERMITTENTLY. MOANING W/ BACK PAIN ON A COUPLE OCCASIONS, RESPONDED WELL TO ROXANOL. FEARFUL AND ANXIOUS- REACTS SUDDENLY W/ YELLING IN RESPONSE TO RAISING OR LOWERING THE BED, THE HOB, OR ANY ATTEMPTS TO REPOSITION PT. PREMEDICATED PT FOR TURNING AND CHANGING BUT PT YELLED AND WAS FEARFUL DURING THE PROCESS REGARDLESS. CURRENTLY RESTING AND APPEARS COMFORTABLE. ABLE TO COMMUNICATE NEEDS. SOME CONFUSED STATEMENTS. FC PATENT AND DRAINING CLOUDY URINE W/ MOD AMTS OF SEDIMENT. YEASTY RED FOLDS, HOWEVER PT VERY RESISTANT TO MOVEMENT THAT ALLOWS STAFF TO ACCESS AND CLEAN THESE SITES. TAKING PUREED FOODS AND FLUIDS WELL TONIGHT. WILL CONT TO MONITOR.
[2020-04-29] MEDS ORDERED: ATROPINE SULFATE2 M3 SL (08:04)
[2020-04-29] MEDS ORDERED: FURO20 PO (08:04)
[2020-04-29] MEDS ORDERED: FENTANYL1 EA12 TOP (08:04)
[2020-04-29] MEDS ORDERED: Vistaril25 MG PO (08:05)
[2020-04-29] MEDS ORDERED: Keppra750 MG PO (08:06)
[2020-04-29] MEDS ORDERED: Ativan1 MG PO (08:06)
[2020-04-29] MEDS ORDERED: NYAMYC15 G1 TOP (08:07)
[2020-04-29] MEDS ORDERED: MORP20L SL (08:07)
[2020-04-29] MEDS ORDERED: TRANSDERM-SCOP1 EAC3 TOP (08:08)
[2020-04-29 10:15] LABS: Influenza A, PCR Negative (NEGATIVE); Influenza B, PCR Negative (NEGATIVE); Resp Syncytial Virus, PCR Negative (NEGATIVE); SARS-Cov-2 (COVID-19) PCR, MMC Negative (NEGATIVE)
--- NOTE | 2020-04-29 10:45 | NUR ---
PT DISCHARGED FROM THE UNIT. PICC LINE REMOVED. SALDIVAR LEFT IN PLACE FOR COMFORT. PT LEFT AT 1045 VIA TRANSPORT, SON AT BEDSIDE AT THE TIME. REPORT GIVEN TO [facility] AT THE [facility].
== END 2020-04-29 10:53 | disposition hospice, home (50) | DRG 64 ==
LOC: ER 04:34 → ERHOLD 06:30 → ICUE 06:30 → MEDS 06:30 → ICUE 12:55 → PCU 04-19 15:32 → MEDS 04-22 02:13
PROVIDERS: Emergency Medicine; Internal Medicine; Internal Medicine Critical Care Medicine; Pharmacist; ADMIT Family Medicine
PROC: 02HV33Z Insertion of Infusion Device into Superior Vena Cava, Percutaneous Approach (ICD-10-PCS; principal; 2020-04-14)
PROC: 0BH18EZ Insertion of Endotracheal Airway into Trachea, Via Natural or Artificial Opening Endoscopic (ICD-10-PCS; 2020-04-14)
PROC: 5A1945Z Respiratory Ventilation, 24-96 Consecutive Hours (ICD-10-PCS; 2020-04-14)
PROC: 3E02340 Introduction of Influenza Vaccine into Muscle, Percutaneous Approach (ICD-10-PCS; 2020-04-14)
DX: I63.40 Cerebral infarction due to embolism of unspecified cerebral artery (principal); G92 Toxic encephalopathy; J15.6 Pneumonia due to other Gram-negative bacteria; G40.211 Localization-related (focal) (partial) symptomatic epilepsy and epileptic syndromes with complex partial seizures, intractable, with status epilepticus; E87.2 Acidosis; Z68.42 Body mass index [BMI] 45.0-49.9, adult; N10 Acute pyelonephritis; E66.2 Morbid (severe) obesity with alveolar hypoventilation; I67.4 Hypertensive encephalopathy; N17.9 Acute kidney failure, unspecified; Z20.828 Contact with and (suspected) exposure to other viral communicable diseases; Z79.01 Long term (current) use of anticoagulants; Z51.5 Encounter for palliative care; E78.00 Pure hypercholesterolemia, unspecified; Z87.891 Personal history of nicotine dependence; N18.30 Chronic kidney disease, stage 3 unspecified; Z86.711 Personal history of pulmonary embolism; J44.9 Chronic obstructive pulmonary disease, unspecified; I12.9 Hypertensive chronic kidney disease with stage 1 through stage 4 chronic kidney disease, or unspecified chronic kidney disease; Z99.81 Dependence on supplemental oxygen; I48.0 Paroxysmal atrial fibrillation; G89.4 Chronic pain syndrome; D63.8 Anemia in other chronic diseases classified elsewhere; Z66 Do not resuscitate; M54.9 Dorsalgia, unspecified; Z23 Encounter for immunization; Z78.1 Physical restraint status
CPT/HCPCS: 0241U; 31720; 36415; 36569; 36600; 51702; 70450; 71045; 74176; 77003; 80048; 80053; 80177; 80202; 81001; 82803; 82945; 82947; 83605; 83735; 83880; 84100; 84145; 84157; 85025; 85610; 85730; 87040; 87070; 87077; 87086; 87106; 87186; 87205; 87483; 89051; 92610; 93005; 93010; 94003; 95819; 96365; 96367; 96372-59; 96375; 96376; 97162; 97530; 99285-25; A9270; C1751; C9113; G0008; G0480; J0133; J0290; J0360; J0610; J0696; J1450; J1644; J1650; J1940; J1953; J2060; J2310; J2405; J2543; J2704; J3010; J3370; J3475; J3480; J7030; J7040; J7050; J7060; J7120; Q0177; Q2038